=== PATIENT | male | born 1950 | race Caucasian/White ===

== ENCOUNTER → 2018-02-13 16:37 | Outpatient (CLI) | payer OTHER, SELFPAY ==
--- NOTE | 2018-02-13 17:15 | RAD_ITS ---
STUDY: X-RAY CHEST REASON FOR EXAM: Male, 67 years old. Follow-up TECHNIQUE: 2 views COMPARISON: February 13, 2015 FINDINGS: The lungs are clear and expanded. There is no demonstrated pleural abnormality. Normal size heart. Normal mediastinum and angelique. Normal visualized pulmonary arteries. Normal visualized aortic arch and descending thoracic aorta. Normal visualized thoracic spine. Normal visualized ribs, clavicles, and shoulders. There is no demonstrated abnormality of the visualized soft tissue structures of the upper abdomen. RAD/Chest PA and Lateral IMPRESSION: Normal x-ray examination of the chest. No acute findings in the lungs Electronically Signed: Osiel Cuellar, at 7:16 EDT Tel , Service support ,
== END ==
PROVIDERS: Family Provider Family Medicine; PCP Family Medicine; Visit Provider Internal Medicine Cardiovascular Disease
DX: I48.0 Paroxysmal atrial fibrillation (principal)
CPT/HCPCS: 71046

== ENCOUNTER → 2018-07-13 07:01 | Outpatient (CLI) | payer OTHER, SELFPAY ==
[2018-07-13 10:32] LABS: Absolute Lymphocyte Count 1.52 X10^3/ul (0.83-4.51); Absolute Neutrophil Count 3.3 X10^3/uL (2.0-7.7); Basophil# 0.05 X10^3/uL; Basophil% 0.9 % (0-1); Eosinophil# 0.32 X10^3/uL; Eosinophils% 5.7 % (0-5); Hematocrit 39.5 % (40-54); Hemoglobin 13.3 g/dl (13.0-16.5); Lymphocyte # 1.52 X10^3/ul (4.0); Lymphocyte % 27.2 % (19-41); Mean Corp Hgb Conc 33.7 g/gl (32-36); Mean Corpuscular Hgb 30.5 pg (27.0-32.0); Mean Corpuscular Volume 90.6 fL (80-94); Mean Platelet Vol. 10.4 fl (6.2-12.0); Monocyte# 0.43 X10^3/uL; Monocyte% 7.7 % (0-10); Neutrophil # 3.26 X10^3/uL (2.7-7.7); Neutrophil % 58.3 % (47-70); Platelet Count 203 K/mm3 (150-450); RBC Distribution Width CV 13.3 % (11.6-14.6); RBC Distribution Width SD 44.1 fl (35.1-43.9); Red Blood Count 4.36 M/mm3 (4.6-6.2); White Blood Count 5.6 K/mm3 (4.4-11.0)
[2018-07-13 10:33] LABS: POSITIVE COUNT NO; POSITIVE DIFFERENTIAL NO; POSITIVE MORPHOLOGY NO
[2018-07-13 12:32] LABS: ALB/GLOB Ratio 1.1 RATIO (0.9-2.4); AST(SGOT) 22 U/L (15-37); Alanine Aminotransfer ALT/SGPT 40 U/L (16-61); Albumin, Serum 3.7 g/dL (3.2-5.0); Alkaline Phosphatase 61 U/L (45-117); Anion Gap 10 (5-15); BUN 18 mg/dL (7-18); BUN/Creat Ratio 16.7 RATIO (10-20); Calcium,Total 8.4 mg/dL (8.5-10.1); Chloride 108 mmol/L (98-107); Cholesterol 127 mg/dL (200); Creatinine, Serum 1.08 mg/dL (0.70-1.30); EST Glomerular Filtration Rate 72 mL/min (>60); Est Glom Filt Rate - Afr Amer 88 mL/min (>60); Globulin 3.5 g/dL (2.2-4.2); Glucose 114 mg/dL (74-106); High Density Lipoprotein 46 mg/dL; PSA,Total - Annual Screen 0.43 ng/mL (0.00-4.00); Potassium 3.3 mmol/L (3.5-5.1); Protein, Total 7.2 g/dL (6.4-8.2); Sodium Level 144 mmol/L (136-145); Thyroid Stim Hormone (TSH) 1.16 uIU/mL (0.358-3.74); Triglycerides 133 mg/dL; Very Low Density Lipoprotein 27 mg/dL (5-40)
[2018-07-13 18:53] LABS: Hemoglobin A1c 6.2 % (4.2-6.3)
--- OUTSIDE RECORDS SUMMARY | 2018-09-05 05:00 | XMS RPT_ITS ---
:1950 Author Organization OHIP Care Team Providers Name Role Phone Lamar Michel Attending Unavailable Golden Kiser Attending Unavailable Ravin Aly Referring Unavailable Ahmet Aly Primary Care Unavailable Golden Kiser Attending Unavailable Reinier Kiserril Referring Unavailable Ravin Aly Primary Care Unavailable Golden Kiser Attending Unavailable Ravin Aly Referring Unavailable Ravin Aly Primary Care Unavailable Ravin Aly Attending Unavailable Ravin Aly Referring Unavailable Ravin Aly Primary Care Unavailable PROBLEMS PROBLEMS DATE TYPE CONDITION / CODE ATTENDING STATUS SOURCE 02/13/2018 Unknown I48.0 - Paroxysmal Margi, Golden Active [facility] I48.0(ICD-10) Repository PROCEDURES PROCEDURES No Procedure Records FoundRESULTS RESULTS CBC W/DIFF, AUTOMATED Collected: 07/13/2018 Status: F Source: [place] 7:04 AM [facility] REPOSITORY TYPE CODE TESTS RESULT OUT OF RANGE REFERENCE UNITS LAB L100.1000 4.4-11.0 K/mm3 Normal WBC 5.6 LAB L100.1200 4.6-6.2 M/mm3 Low RBC 4.36 LAB L100.1300 13.0-16.5 g/dl Normal HGB 13.3 LAB L100.1400 40-54 % Low HCT 39.5 LAB L100.1500 80-94 fL Normal MCV 90.6 LAB L100.1600 27.0-32.0 pg Normal MCH 30.5 LAB L100.1700 32-36 g/gl Normal MCHC 33.7 LAB L100.1810 11.6-14.6 % Normal RDW CV 13.3 LAB L100.1820 35.1-43.9 fl High RDW SD 44.1 LAB L100.1900 150-450 K/mm3 Normal PLT 203 LAB L100.2000 6.2-12.0 fl Normal MPV 10.4 LAB L100.2100 47-70 % Normal NEUT% 58.3 LAB L100.2200 19-41 % Normal LY% 27.2 LAB L100.2300 0-10 % Normal MONO% 7.7 LAB L100.2400 0-5 % High EO% 5.7 LAB L100.2500 0-1 % Normal BASO% 0.9 LAB L100.2550 0.0-0.9 % Normal IM GRAN % 0.200 Result Comment: IG% - Immature Granulocytes (promyelocytes, myelocytes and metamyelocytes) > 1% indicates that a LEFT SHIFT is Present. LAB L100.2620 2.0-7.7 X10 3/uL Normal Absolute Neut 3.3 LAB L100.2720 0.83-4.51 X10 3/ul Normal Absolute Lymph 1.52 Performed By: #### L100.0100 #### [facility] [address] [place], [place], [id number] COMPREHENSIVE METABOLIC Collected: 07/13/2018 Status: F Source: [place]ONZ[place] 7:04 AM [facility] REPOSITORY TYPE CODE TESTS RESULT OUT OF RANGE REFERENCE UNITS LAB L501.0100 74-106 mg/dL High GLU 114 Result Comment: Fasting Glucose result from 100 to 125 mg/dL suggests IMPAIRED HOMEOSTASIS per A.D.A. criteria. Please note revised GLUCOSE reference range effective 2017. LAB L501.1000 7-18 mg/dL Normal BUN 18 LAB L501.1100 0.70-1.30 mg/dL Normal CREAT,SERUM 1.08 Result Comment: The validity of the calculated GFR AND GFRAA in patients over 70 years has not been determined. Clinical correlation is essential. LAB L501.1110 >60 mL/min Normal EST GFR 72 Result Comment: Non- GFR Calc LAB L501.1115 >60 mL/min Normal EST GFR - AA 88 Result Comment: GFR Calc LAB L501.1300 10-20 RATIO Normal BUN/CRE 16.7 LAB L501.1500 6.4-8.2 g/dL T Normal PROT 7.2 LAB L501.1800 3.2-5.0 g/dL Normal ALB 3.7 LAB L501.1950 2.2-4.2 g/dL Normal GLOB 3.5 LAB L501.2000 0.9-2.4 RATIO Normal A/G 1.1 LAB L501.2200 8.5-10.1 mg/dL Low CA 8.4 LAB L501.4100 15-37 U/L Normal AST 22 LAB L501.4305 45-117 U/L Normal ALK P 61 LAB L501.4405 16-61 U/L Normal ALT 40 LAB L501.4600 0.20-1.00 mg/dL T Normal BILI 0.40 LAB L501.5300 136-145 mmol/L NA Normal 144 LAB L501.5600 3.5-5.1 mmol/L Low K 3.3 LAB L501.5900 98-107 mmol/L High CL 108 LAB L501.6100 21.0-32.0 mmol/L Normal CO2 26.0 LAB L501.6200 5-15 Normal GAP 10 Performed By: #### L500.4050, L500.4100, L501.9520, L501.9910 #### [facility] [address] [place], [place], [id number] LIPID PROFILE Collected: 07/13/2018 Status: F Source: [place] 7:04 AM [facility] REPOSITORY TYPE CODE TESTS RESULT OUT OF RANGE REFERENCE UNITS LAB L501.4900 200 mg/dL Normal CHOL 127 Result Comment: <200 mg/dL Desirable 200-240 mg/dL Borderline >240 mg/dL High Risk LAB L501.5000 mg/dL Normal TRIG 133 Result Comment: The drugs N-Acetylcysteine and Metamizole may falsely depress this assay. Serum Triglycerides Reference Interval Normal <150 mg/dL Borderline high 150 - 199 mg/dL High 200 - 499 mg/dL Very High > or = 500 mg/dL LAB L501.6400 mg/dL Normal HDL 46 Result Comment: The drugs N-Acetylcysteine and Metamizole may falsely depress this assay. Reference Range HDL <40 mg/dL Low HDL Cholesterol HDL >or= 60 mg/dL High HDL Cholesterol LAB L501.6500 0-130 mg/dL Normal LDL 54 LAB L501.6600 5-40 mg/dL Normal VLDL 27 Performed By: #### L500.4050, L500.4100, L501.9520, L501.9910 #### [facility] [address] [facility] [place], [place], [id number] THYROID STIM HORMONE Collected: 07/13/2018 Status: F Source: [place] (TSH) 7:04 AM [facility] REPOSITORY TYPE CODE TESTS RESULT OUT OF RANGE REFERENCE UNITS LAB L501.9520 0.358-3.74 uIU/mL Normal TSH 1.16 Performed By: #### L500.4050, L500.4100, L501.9520, L501.9910 #### [facility] [address] [place], [place], [id number] PSA,TOTAL - ANNUAL Collected: 07/13/2018 Status: F Source: [place] SCREEN 7:04 AM [facility] REPOSITORY TYPE CODE TESTS RESULT OUT OF RANGE REFERENCE UNITS LAB L501.9910 0.00-4.00 ng/mL Normal PSA,TOT 0.43 SCREEN Result Comment: This test was performed using the TPSA assay method for the Intoo chemistry system. Values obtained with different assay methods cannot be used interchangably. When changing PSA assays in the course of monitoring a patient, additional sequential testing should be carried out to confirm baseline values. Performed By: #### L500.4050, L500.4100, L501.9520, L501.9910 #### [facility] [address] [place], [address] HEMOGLOBIN A1C Collected: 07/13/2018 Status: F Source: [place] 7:04 AM [facility] REPOSITORY TYPE CODE TESTS RESULT OUT OF RANGE REFERENCE UNITS LAB L501.9985 4.2-6.3 % Normal HGB A1C 6.2 Performed By: #### L501.9985 #### [facility] [address] [place], [address] OFFICE VISIT REPORT Observed: 03/11/2018 Status: F Source: [place] 1:26 PM [facility] REPOSITORY [facility] [address] [place] [address] OFFICE VISIT Date of Service: 03/09/18 MR#: [id number] Acct: [id number] Patient: JOVANNY HILLS Rep #: [id number] : 1950 Provider: Golden Kiser MD Age/Sex: 67/M Location: [facility] Status: Signed Intake Intake Visit Reasons: RLE injury with bruising Allergies grape Allergy (Verified 02/13/18 16:00) Anaphylaxis peanut Allergy (Verified 02/13/18 16:00) Anaphylaxis Medications Multivitamins,Therapeutic [Multivitamin] 1 tab PO DAILY 02/13/15 [History Confirmed 02/13/18] Malott-3 Fatty Acids/Fish Oil [Fish Oil 1,200 mg Softgel] 1 ea PO DAILY 02/13/15 [History Confirmed 02/13/18] Omeprazole [Prilosec] 20 mg PO DAILY 02/13/15 [History Confirmed 02/13/18] Tamsulosin HCl [Flomax] 0.4 mg PO DAILY 02/13/15 [History Confirmed 02/13/18] Rivaroxaban [Xarelto] 20 mg PO DAILY #30 tab 02/15/15 [Rx Confirmed 02/13/18] Carvedilol [Coreg (Beta Savannah)] 12.5 mg PO BID #60 tab 02/16/15 [Rx Confirmed 02/13/18] lisinopril 5 mg tablet 5 mg PO BID #180 tab 07/18/17 [Rx Confirmed 02/13/18] amiodarone 200 mg tablet 200 mg PO QDAY #90 tab 02/13/18 [Rx Confirmed 02/13/18] tadalafil 5 mg tablet 5 mg PO DAILY 02/13/18 [History Confirmed 02/13/18] atorvastatin 40 mg tablet 40 mg PO QHS #90 tab 02/23/18 [Rx] furosemide 40 mg tablet 40 mg PO QDAY #90 tab 02/23/18 [Rx] Nursing Note Patient in for RLE groin injury. He has been holding his xarelto because of groin and medial thigh ecchymosis. He was seen at Urgent Center who told him it was okay to restart his xarelto, but stopped in to make sure we agreed. Right groin slightly ecchymotic, with bruising noted behind knee and medial knee. C/O increase pain medial knee presently has thigh wrapped with an mady bandage per Urgent Care instructions. Patient instructed to start xarelto today. 03/11/18 1326 <Electronically signed by Tiffany REYNOLDS> Date Tiffany REYNOLDS Cosigner Signature: Date (if applicable) CC: Aracelis Ng CARDIOLOGY VISIT Observed: 02/16/2018 Status: F Source: [place] REPORT 7:24 PM [facility] REPOSITORY [facility] [address] [place] [address] OFFICE VISIT Date of Service: 02/13/18 MR#: [id number] Acct: [id number] Name: JOVANNY HILLS Rep #: [id number] : 1950 Provider: Golden Kiser MD Age/Sex: 67/M Location: [facility] Status: Signed HPI HPI Details: JOVANNY HILLS, is a 67 M who presents to the office today for a follow-up visit. He is a gentleman with a history of nonischemic cardiomyopathy with was demonstrated on cardiac catheterization with a minimal coronary artery disease. He has had a history of atrial fibrillation for which she was cardioverted he was put on amiodarone beta-savannah MADY inhibitor and diuretic he has done quite well since. He says that he has had one episode where he had some palpitations he felt his heart was racing but it was more in the 70s. He has had no chest pain paroxysmal nocturnal dyspnea or pedal edema no presyncope or syncope. He has been under some stressful situation at work. You do remember that his ejection fraction is noted to be 40-45% by MRI. His most recent echocardiogram in January of last year demonstrated ejection fraction of 50% with mild mitral and tricuspid regurgitation. His physical exam today demonstrates clear lung chilel regular rate and rhythm and no pedal edema. Overall he appears to doing quite well. Intake Vital Signs02/13/18 Height 5 ft 8 in 02/13/18 Weight: 183 lb 02/13/18 Body Mass Index (BMI) 27.8 02/13/18 Blood Pressure 110/72 02/13/18 Blood Pressure Location Lt brachial Intake Visit Reasons: 6 M FU (we moved from 6-8) [employer] Required: No Accompanied by: none Is patient in pain?: No Allergies grape Allergy (Verified 02/13/18 16:00) Anaphylaxis peanut Allergy (Verified 02/13/18 16:00) Anaphylaxis Medications Multivitamins,Therapeutic [Multivitamin] 1 tab PO DAILY 02/13/15 [History Confirmed 02/13/18] Malott-3 Fatty Acids/Fish Oil [Fish Oil 1,200 mg Softgel] 1 ea PO DAILY 02/13/15 [History Confirmed 02/13/18] Omeprazole [Prilosec] 20 mg PO DAILY 02/13/15 [History Confirmed 02/13/18] Tamsulosin HCl [Flomax] 0.4 mg PO DAILY 02/13/15 [History Confirmed 02/13/18] Rivaroxaban [Xarelto] 20 mg PO DAILY #30 tab 02/15/15 [Rx Confirmed 02/13/18] Carvedilol [Coreg (Beta [place]annah)] 12.5 mg PO BID #60 tab 02/16/15 [Rx Confirmed 02/13/18] lisinopril 5 mg tablet 5 mg PO BID #180 tab 07/18/17 [Rx Confirmed 02/13/18] amiodarone 200 mg tablet 200 mg PO QDAY #90 tab 02/13/18 [Rx Confirmed 02/13/18] atorvastatin 40 mg tablet 40 mg PO QHS #90 tab 02/13/18 [Rx Confirmed 02/13/18] furosemide 40 mg tablet 40 mg PO QDAY #90 tab 02/13/18 [Rx Confirmed 02/13/18] tadalafil 5 mg tablet 5 mg PO DAILY 02/13/18 [History Confirmed 02/13/18] Ejection fraction %: 50 to 54 [facility] Medical History Atherosclerosis of coronary artery of [place] heart without angina pectoris (Chronic) Paroxysmal atrial fibrillation (Chronic) Hyperlipidemia (Chronic) GERD (gastroesophageal reflux disease) (Chronic) Acute systolic CHF (congestive heart failure) (Chronic) Cardiomyopathy (Chronic) PVCs (premature ventricular contractions) (Acute) Hypokalemia (Resolved) New onset atrial fibrillation (Resolved) Surgical History History of cardioversion (Chronic 04/24/15) Status post left heart catheterization (Chronic 02/14/15) Family History Brother Heart disease heart transplant Social History Smoking Status: Never smoker ROS Const Const: Negative for fatigue, weakness, night sweats, excessive sweating, frequent falls, headache(s) or daytime sleepiness Eyes Eyes: Negative for loss of peripheral vision, transient loss of vision, blind spots, double vision or blurry vision ENT ENT: Negative for headache(s), dizziness, balance problems, Nosebleed/epistaxis, tongue swelling or lip swelling Cardio Chest Pain: No Palpitations: No Edema: None Muscle aches with walking: None Resp Respiratory: Positive for SOB with activity; negative for SOB at rest, SOB orthopnea\SOB lying down, Cough or paroxysmal nocturnal dyspnea GI GI: Negative nausea, vomiting, heartburn, black,tarry stools or bright, red blood in stools : Negative for hematuria Musc Musc: Negative for balance problems, muscle aches/ myalgia, muscle weakness or joint pain Skin Skin: Negative non-healing lesions, unusual bruising or rash Neuro Neuro: Negative for weakness, frequent falls, headache(s), double vision, dizziness, lightheadedness, orthostatic symptoms, blurry vision or lack of coordination Zay Hematologic/Lymphatic: Negative for easy bruising or easy bleeding Endo Endo: Negative for fatigue, excessive sweating, cold intolerance, heat intolerance, increased thirst/drinking or hair loss Psych Psych: Negative for anxiety or depression Allergy Allergy/Immunology: Negative for throat swelling, Negative for tongue swelling, Negative for hives, Negative for rash, Negative for lip swelling Cardiology Exam Const Appearance: cooperative, healthy appearing, well developed, well groomed and no acute distress Nutritional Appearance: well nourished and average body habitus Orientation: alert, awake and oriented x3 Head Head: normal to inspection, normocephalic and atraumatic Ears: hearing grossly normal bilaterally and external ears normal Nose: external nose normal, nasal mucous membranes and turbinates normal, nares normal, septum normal, no nasal discharge Face and Sinus: face symmetric Mouth: oral mucosae normal, tongue normal, oropharynx normal and moist mucous membranes Teeth and gingiva: dentition normal Throat: posterior oropharynx normal, tonsils normal and uvula midline Eyes General: appearance normal, both eyes and all related structures Eyelids: eyelids normal Conjunctivae: conjunctivae normal Pupils: PERRL, normal by confrontation and accommodation normal EOM: EOM intact bilaterally Neck Neck: normal visual inspection, trachea midline and no JVD JVD: +5 Carotids: normal carotid upstroke and bounding pulses Chest Chest inspection: normal inspection of the chest, symmetric chest movement and normal respiratory effort Auscultation: Bilateral: Clear to Auscultation Cardio Palpation: normal PMI Rate: regular rate Rhythm: regular rhythm Heart sounds: S1 normal, S2 normal and normal, physiologic split S2; negative rub, gallop or murmur GI GI: normal to inspection, soft, no hepatosplenomegaly and bowel sounds present Neuro General: alert, awake, oriented x3, no focal sensory deficit, gait normal and moves all extremities Skin Skin: no rashes or lesions noted Extremities Pulses: Normal: Right Femoral Pulse, Left Femoral Pulse, Right Dorsalis Pedis Pulse, Left Dorsalis Pedis Pulse, Right Posterior Tibial Pulse, Left Posterior Tibial Pulse, Right Radial Pulse, Left Radial Pulse Lower Extremity Edema: None: Bilateral Musculoskel Musculoskeletal: No joint tenderness Psych Psychological: normal affect Assessment AND Plan 1. Paroxysmal atrial fibrillation I48.0 Plan He does have a history of paroxysmal atrial fibrillation has been maintaining sinus rhythm on his current regimen and the plan is for him to continue the same. Due to his being on the amiodarone I would recommend that we obtain a chest x-ray routinely. No other changes will be made. Orders Orders: 2. Other cardiomyopathy I42.8 Plan He does have a history of a mild cardiomyopathy without any heart failure symptoms my recommendation is for him to remain on the same medications with no changes. Should he experience any change in his condition he should not hesitate to let us know. 3. Pure hypercholesterolemia E78.00 Plan He does have a history of hyperlipidemia and is on high intensity statin. His most recent lipid profile demonstrated total cholesterol 112, HDL of 44, and LDL of 42. No other changes will be made. Thank you for allowing me to participate in the care of your patient. Please don't hesitate to call if any issues arise Plan Detail Other Medications New: Refilled: Follow Up 6 Months (rewriter) Coding Level of Care Code Off vis,est,level 4 Diagnoses Paroxysmal atrial fibrillation I48.0 Other cardiomyopathy I42.8 Cardiomyopathy type: other Pure hypercholesterolemia E78.00 Hyperlipidemia type: pure hypercholesterolemia Coding Level of Care Code Off vis,est,level 4 Diagnoses Paroxysmal atrial fibrillation I48.0 Other cardiomyopathy I42.8 Cardiomyopathy type: other Pure hypercholesterolemia E78.00 Hyperlipidemia type: pure hypercholesterolemia 02/16/181923 <Electronically signed by Golden Kiser MD> Date Golden Kiser MD Cosigner Signature: Date (if applicable) CC: Ravin Aly DO CHEST PA AND LATERAL Observed: 02/13/2018 Status: F Source: [place] 4:41 PM [facility] REPOSITORY [facility] [place] [address] Chest PA and Lateral MR#: [id number] Acct: [id number] Name: JOVANNY HILLS Rep #: [id number] : 1950 M 67 From: Osiel Cuellar MD PCP: Ravin Aly DO Status: REG CLI Study: Chest PA and Lateral Date of Exam: 02/13/18 Exam# [id number] Ordering Dr: Golden Kiser MD STUDY: X-RAY CHEST REASON FOR EXAM: Male, 67 years old. Follow-up TECHNIQUE: 2 views COMPARISON: February 13, 2015 FINDINGS: The lungs are clear and expanded. There is no demonstrated pleural abnormality. Normal size heart. Normal mediastinum and angelique. Normal visualized pulmonary arteries. Normal visualized aortic arch and descending thoracic aorta. Normal visualized thoracic spine. Normal visualized ribs, clavicles, and shoulders. There is no demonstrated abnormality of the visualized soft tissue structures of the upper abdomen. RAD/Chest PA and Lateral IMPRESSION: Normal x-ray examination of the chest. No acute findings in the lungs Electronically Signed: Osiel Cuellar, at 7:16 EDT Tel , Service support , CC: Golden Kiser MD; Ravin Aly DO Network [employer] Operators Supervisor: Signed PROGRESS Observed: 11/14/2017 Status: COMPLETED Source: [place] 4:35 PM [facility] REPOSITORY HNO ID: [id number] Author: Chiquis Acosta Service: (none) Author Type: Physician Salvage Winder Type: Progress Notes Filed: 11/14/2017 4:48 PM Note Text: 11/14/2017 Patient presents with: Flu Like Symptoms SUBJECTIVE: This is a 67 year old that is here today for Complaint(s) of cough and chest congestion x 1 week. + pain with coughing across the center of the back. + intermittent SOB. Notes low grade fever and chills. + Nasal congestion. Normal appetite, but diminished energy. + scratchy throat with cough. He does have afbi, currently on xaralto. No past medical history on file. ALLERGIES Review of patient's allergies indicates no known allergies. MEDICATIONS No current outpatient prescriptions on file. No current facility-administered medications for this visit. SOCIAL HISTORY Social History Marital status: Spouse name: Years of education: Number of children: Social History Main Topics Smoking status: Never Smoker Smokeless status: Never Used REVIEW OF SYSTEMS All other reviewed and negative other than HPI. OBJECTIVE: BP 140/80 Pulse 75 Temp 37.7 ?C (99.9 ?F) (Left Tympanic) Resp 26 Wt 83 kg (183 lb) SpO2 96% APPEARANCE Well appearing, alert, in no acute distress, well-hydrated, well nourished. EYES PERRLA, conjunctiva and sclera normal. EARS External ears normal, canals clear. TMs normal DANIELLE NOSE/SINUS Nares normal. Septum midline. Mucosa normal. No drainage or sinus tenderness. THROAT normal, no erythema NECK Supple, no adenopathy HEART RRR with normal S1 and S2 LUNG coarse breath sounds DANIELLE lower lobes, + expiratory wheezes scattered left side. ASSESSMENT/PLAN: 1. Bronchitis - ICD9: 490, ICD10: J40 Supportive care with fluids and rest Reviewed red flags and when to seek care sooner. OTC cough/cold meds - BENZONATATE 100 MG CAPSULE - PREDNISONE 20 MG TABLET - DOXYCYCLINE HYCLATE 100 MG TABLET The patient indicates understanding of these issues and agrees with the plan. Reviewed red flags and when to seek care sooner. ROBERT Ku Observed: 11/14/2017 Status: COMPLETED Source: [place] 4:15 PM [facility] REPOSITORY Office Visit ([facility]STR) JOVANNY HILLS ([id number]) 1950 M Date Time Provider Department 11/14/17 4:15 PM CHIQUIS ACOSTA) [facility] During your visit today, we recorded the following information about you: Temperature Pulse Respiration Blood pressure 99.9 degrees 75/minute 26/minute 140/80 Weight 83 kg Chiquis Acosta PA-C 11/14/2017 4:48 PM Signed 11/14/2017 Patient presents with: Flu Like Symptoms SUBJECTIVE: This is a 67 year old that is here today for Complaint(s) of cough and chest congestion x 1 week. + pain with coughing across the center of the back. + intermittent SOB. Notes low grade fever and chills. + Nasal congestion. Normal appetite, but diminished energy. + scratchy throat with cough. He does have afbi, currently on xaralto. No past medical history on file. ALLERGIES Review of patient's allergies indicates no known allergies. MEDICATIONS No current outpatient prescriptions on file. No current facility-administered medications for this visit. SOCIAL HISTORY Social History Marital status: Spouse name: Years of education: Number of children: Social History Main Topics Smoking status: Never Smoker Smokeless status: Never Used REVIEW OF SYSTEMS All other reviewed and negative other than HPI. OBJECTIVE: BP 140/80 Pulse 75 Temp 37.7 ?C (99.9 ?F) (Left Tympanic) Resp 26 Wt 83 kg (183 lb) SpO2 96% APPEARANCE Well appearing, alert, in no acute distress, well- hydrated, well nourished. EYES PERRLA, conjunctiva and sclera normal. EARS External ears normal, canals clear. TMs normal DANIELLE NOSE/SINUS Nares normal. Septum midline. Mucosa normal. No drainage or sinus tenderness. THROAT normal, no erythema NECK Supple, no adenopathy HEART RRR with normal S1 and S2 LUNG coarse breath sounds DANIELLE lower lobes, + expiratory wheezes scattered left side. ASSESSMENT/PLAN: 1. Bronchitis - ICD9: 490, ICD10: J40 Supportive care with fluids and rest Reviewed red flags and when to seek care sooner. OTC cough/cold meds - BENZONATATE 100 MG CAPSULE - PREDNISONE 20 MG TABLET - DOXYCYCLINE HYCLATE 100 MG TABLET The patient indicates understanding of these issues and agrees with the plan. Reviewed red flags and when to seek care sooner. Chiquis Acosta PA-C Referring Provider: SELF [200] Allergies As of Date: 11/14/2017 (No Known Allergies) Date Reviewed: 11/14/2017 Reviewed by: Aure Jaimes Ma - Fully Assessed Reason for Visit: Flu Like Symptoms [267] Primary Visit Diagnosis:Bronchitis [J40] Order(s):benzonatate (TESSALON PERLE) 100 mg capsuleTake 2 capsules by mouth three times daily as needed.Disp: 30 capsuleRfl: 0 predniSONE (DELTASONE) 20 mg tabletTake 2 tablets by mouth once daily for 5 days.Disp: 10 tabletRfl: 0 doxycycline (VIBRA-TABS) 100 mg tabletTake 1 tablet by mouth twice daily for 10 days.Disp: 20 tabletRfl: 0 Prescriptions as of 11/14/2017 Sig: BENZONATATE 100 MG CAPSULE Take 2 capsules by mouth thre* PREDNISONE 20 MG TABLET Take 2 tablets by mouth once * DOXYCYCLINE HYCLATE 100 MG TA* Take 1 tablet by mouth twice * Problem List As Of Date: 11/14/2017 (None) Prescriptions ordered this encounter Disp Refills Start End BENZONATATE 100 MG CAPSULE 30 c* 0 11/14/2017 Route: ORAL Sig: Take 2 capsules by mouth three times daily as needed. PREDNISONE 20 MG TABLET 10 t* 0 11/14/2017 11/19/2017 Route: ORAL Sig: Take 2 tablets by mouth once daily for 5 days. DOXYCYCLINE HYCLATE 100 MG TABLET 20 t* 0 11/14/2017 11/24/2017 Route: ORAL Sig: Take 1 tablet by mouth twice daily for 10 days. Encounter Status:Closed by CHIQUIS ACOSTA PA-C on 11/14/17 ALLERGIES ALLERGIES DATE TYPE / CODE NAME / CODE REACTION SEVERITY SOURCE 02/13/2018 Drug peanut/F006 Anaphylaxis Unknown [place] [facility] Allergy/4160 [id number]([facility] 87246(SNOMED RM) Repository CT) 02/13/2018 Drug grape/F0060 Anaphylaxis Unknown [facility] All[facility]/4160 89645([place] [facility] [id number](SNOMED M) Repository CT) ENCOUNTERS ENCOUNTERS ADMIT/DISCHARGE ACCOUNT ADMITTING ENCOUNTER LOCATION SOURCE NUMBER CLASS 07/13/2018 [id number] Ambulatory [facility] ing:MTLAB Repository 03/09/2018/03/09/20 [id number] Ambulatory BMSBuilding:[address] [place] [address].[facility] Repository 02/13/2018 [id number] Ambulatory [facility] ing:RAD Repository 02/13/2018/02/14/20 [id number] Ambulatory BMSBuilding:[address] [place] [address] MS.[facility] Repository 01/21/2018 [id number] Ambulatory [facility] Repository 11/14/2017/11/18/19 [id number] Ambulatory [address] Repository PAYERS PAYERS ENCOUNTER GUARANTOR PAYER SUBSCRIBER SOURCE 07/13/2018 JOVANNY Hand Primary Insurance:UMR JOVANNY Hightower [id number] CELESTE [id number] BARILLEDOB: [facility] Number: [id number] [id number] Repository 90696Pbk: ([phone]) Date:[id number] [phone] () [address] [place] [phone]: 07/13/2018 Secondary NOT GIVENUNK [place] Insurance:SELF PAY [facility] Number: Effective Repository Date:2018-07-13 03/09/2018 JOVANNY Hand Primary Insurance:UMR JOVANNY Hightower [id number] CELESTE [id number] BARILLEDOB: [facility] JORDEN Number: [id number], [place] [id number] Repository [address]Ixw: 330) Date:0056-69-76EF [phone] ) [address] [phone]: 03/09/2018 Secondary NOT GIVENUNK [place] Insurance:SELF PAY [facility] Number: Effective Repository Date:2018-03-09 02/13/2018 JOVANNY Hand Primary Insurance:UMR JOVANNY Hightower [id number] CELESTE [id number] BARILLEDOB: [facility] Number: [id number], [place] [id number] Repository [address]28[address]Dpi: ([phone]) Date:6958-48-11TZ [phone] (HP) [address] [place] [phone]: 02/13/2018 Secondary NOT GIVENUNK [place] Insurance:SELF PAY [facility] Effective Repository Date:2018-02-13 02/13/2018 JOVANNY Hand Primary Insurance:UMR JOVANNY Hand [place] [id number] CELESTE [id number] BARILLEDOB: Community JORDEN Number: [id number], [place] [id number] Repository [address]Hxn: ([phone]) Date:1606-63-93OH [phone] () [address] [place] [phone]: 02/13/2018 Secondary NOT GIVENUNK [place] Insurance:SELF PAY [facility] Number: Effective Repository Date:2017-11-10 01/21/2018 JOVANNY Hand Primary Insurance:UMR JOVANNY Hand [place] [id number] CELESTE [id number] BARILLEDOB: Community JORDEN Number: [id number], [place] [id number] Repository 38[address]Tzd: Date:[id number] [phone] [place] [address], -4 (HP) [place] [phone]: 01/21/2018 Secondary NOT GIVENUNK [place] Insurance:SELF PAY [facility] Number: Effective Repository Date:2018-01-21
== END ==
PROVIDERS: Family Provider Family Medicine; PCP Family Medicine; Referring Provider Family Medicine; Visit Provider Family Medicine
DX: Z00.01 Encounter for general adult medical examination with abnormal findings (principal); N40.0 Benign prostatic hyperplasia without lower urinary tract symptoms; Z12.5 Encounter for screening for malignant neoplasm of prostate; Z51.81 Encounter for therapeutic drug level monitoring; I25.10 Atherosclerotic heart disease of native coronary artery without angina pectoris; E78.5 Hyperlipidemia, unspecified; R73.01 Impaired fasting glucose
CPT/HCPCS: 36415; 80053; 80061; 83036; 84153; 84443; 85025; G0103

== ENCOUNTER → 2019-02-26 14:35 | Outpatient (CLI) | payer OTHER, SELFPAY ==
[2019-02-26 12:01] VITALS: BMI 28.5
[2019-02-26 15:20] LABS: AST(SGOT) 24 U/L (15-37); Alanine Aminotransfer ALT/SGPT 42 U/L (16-61); Albumin, Serum 3.8 g/dL (3.2-5.0); Alkaline Phosphatase 63 U/L (45-117); Anion Gap 5 (5-15); BUN 13 mg/dL (7-18); BUN/Creat Ratio 11.7 RATIO (10-20); Bilirubin, Direct 0.11 mg/dL (0.00-0.30); Calcium,Total 8.5 mg/dL (8.5-10.1); Chloride 106 mmol/L (98-107); Cholesterol 151 mg/dL (200); Creatinine, Serum 1.11 mg/dL (0.70-1.30); EST Glomerular Filtration Rate 70 mL/min (>60); Est Glom Filt Rate - Afr Amer 85 mL/min (>60); Globulin 3.9 g/dL (2.2-4.2); Glucose 93 mg/dL (74-106); High Density Lipoprotein 56 mg/dL; Potassium 3.5 mmol/L (3.5-5.1); Protein, Total 7.7 g/dL (6.4-8.2); Sodium Level 139 mmol/L (136-145); Thyroid Stim Hormone (TSH) 1.07 uIU/mL (0.358-3.74); Triglycerides 175 mg/dL; Very Low Density Lipoprotein 35 mg/dL (5-40)
== END ==
PROVIDERS: Family Provider Family Medicine; PCP Family Medicine; Referring Provider Internal Medicine Cardiovascular Disease; Visit Provider Internal Medicine Cardiovascular Disease
DX: E78.00 Pure hypercholesterolemia, unspecified (principal)
CPT/HCPCS: 36415; 80048; 80061; 80076; 84443

== ENCOUNTER → 2020-02-25 15:28 | Outpatient (CLI) | payer OTHER, SELFPAY ==
[2019-02-26 12:01] VITALS: BMI 28.5
[2020-02-25 15:00] VITALS: BMI 27.9
[2020-02-25 16:32] LABS: Absolute Lymphocyte Count 1.49 X10^3/uL (0.83-4.51); Absolute Neutrophil Count 6.2 X10^3/uL (2.0-7.7); Basophil# 0.07 X10^3/uL; Basophil% 0.8 % (0-1); Eosinophil# 0.22 X10^3/uL; Eosinophils% 2.6 % (0-5); Hematocrit 40.6 % (40-54); Hemoglobin 13.5 g/dL (13.0-16.5); Lymphocyte # 1.49 X10^3/ul (4.0); Lymphocyte % 17.3 % (19-41); Mean Corp Hgb Conc 33.3 g/dL (32-36); Mean Corpuscular Hgb 30.2 pg (27.0-32.0); Mean Corpuscular Volume 90.8 fL (80-94); Mean Platelet Vol. 10.3 fl (6.2-12.0); Monocyte# 0.64 X10^3/uL; Monocyte% 7.4 % (0-10); NRBC Flagged by Analyzer 0 % (0-5); Neutrophil # 6.17 X10^3/uL (2.7-7.7); Neutrophil % 71.7 % (47-70); Platelet Count 228 K/mm3 (150-450); RBC Distribution Width CV 12.8 % (11.6-14.6); RBC Distribution Width SD 42.4 fl (35.1-43.9); Red Blood Count 4.47 M/mm3 (4.6-6.2); White Blood Count 8.6 K/mm3 (4.4-11.0)
[2020-02-25 17:22] LABS: AST(SGOT) 24 U/L (15-37); Alanine Aminotransfer ALT/SGPT 35 U/L (16-61); Albumin, Serum 3.9 g/dL (3.2-5.0); Alkaline Phosphatase 55 U/L (45-117); Anion Gap 5 (5-15); BUN 19 mg/dL (7-18); BUN/Creat Ratio 17.8 RATIO (10-20); Bilirubin, Direct 0.17 mg/dL (0.00-0.30); Calcium,Total 8.3 mg/dL (8.5-10.1); Chloride 107 mmol/L (98-107); Cholesterol 133 mg/dL (200); Creatinine, Serum 1.07 mg/dL (0.70-1.30); EST Glomerular Filtration Rate 73 mL/min (>60); Est Glom Filt Rate - Afr Amer 88 mL/min (>60); Globulin 3.6 g/dL (2.2-4.2); Glucose 89 mg/dL (74-106); High Density Lipoprotein 51 mg/dL; PSA,Total - Annual Screen 0.54 ng/mL (0.00-4.00); Potassium 3.5 mmol/L (3.5-5.1); Protein, Total 7.5 g/dL (6.4-8.2); Sodium Level 140 mmol/L (136-145); Thyroid Stim Hormone (TSH) 1.31 uIU/mL (0.358-3.74); Triglycerides 97 mg/dL; Very Low Density Lipoprotein 19 mg/dL (5-40)
[2020-02-28 12:42] LABS: V-Zoster IgG (Immunity) 621 index (Immune >165)
== END ==
PROVIDERS: Family Provider Family Medicine; PCP Family Medicine; Referring Provider Internal Medicine Cardiovascular Disease; Visit Provider Internal Medicine Cardiovascular Disease
DX: Z51.81 Encounter for therapeutic drug level monitoring (principal); Z12.5 Encounter for screening for malignant neoplasm of prostate; Z71.89 Other specified counseling
CPT/HCPCS: 36415; 80048; 80061; 80076; 84153; 84443; 85025; 86787; G0103

== ENCOUNTER → 2020-03-27 08:42 | Outpatient (CLI) | payer OTHER, SELFPAY ==
[2020-02-25 15:00] VITALS: BMI 27.9
--- NOTE | 2020-03-27 08:47 | ECHOD_ITS ---
Reason For Study: CHF Procedure This was a 2D Doppler, Color Flow transthoracic echocardiogram. Exam performed in department. Left Ventricle Normal LV size. Left ventricular systolic function is lower limits of normal. The estimated ejection fraction is 50 %. Stage 1 diastolic dysfunction. There is mild global hypokinesis of the left ventricle. Right Ventricle Normal RV size. Normal systolic function. Atria The left atrium is mildly enlarged. Normal right atrium. Mitral Valve Normal mitral valve. Mild (1+) eccentric mitral valve insufficiency. Tricuspid Valve Normal tricuspid valve. Mild tricuspid valve insufficiency. Pulmonary artery systolic pressure is 30 mmHg. Aortic Valve Normal aortic valve. Trisinus/trileaflet aortic valve. Pulmonic Valve Normal pulmonic valve. Great Vessels Normal aortic root. The pulmonary artery is normal size. Normal inferior vena cava. Pericardium/Pleural No pericardial effusion. MMode/2D Measurements & Calculations LVIDd: 5.2 cm IVSd: 1.1 cm Ao root diam: 3.3 cm LVIDs: 3.3 cm LVPWd: 1.4 cm LA dimension: 4.6 cm RVDd: 3.6 cm FS: 36.0 % LAV(MOD-bp): 51.7 ml LA A4 area: 21.0 cm2 RA A4 area: 14.4 cm2 LAV(MOD-bp) Indexed: 26.8 ml/m2 LAV(MOD-sp2): 43.2 ml LAV(MOD-sp4): 59.6 ml Time Measurements MV dec time: 0.29 sec Doppler Measurements & Calculations MV E max jay jay: 71.0 cm/sec Lat Peak E' Jay Jay: 5.8 cm/sec Med Peak E' Jay Jay: 5.1 cm/sec MV A max jay jay: 98.1 cm/sec E/E' lat: 12.2 E/E' med: 13.9 MV E/A: 0.72 MV V2 max: 118.5 cm/sec MV P1/2t max jay jay: 82.8 cm/sec Ao V2 max: 132.9 cm/sec MV max P.6 mmHg MV P1/2t: 146.1 msec Ao max P.1 mmHg MV V2 mean: 57.0 cm/sec MV dec slope: 166.0 cm/sec2 MV mean P.5 mmHg MVA(P1/2t): 1.5 cm2 MV V2 VTI: 42.7 cm LV V1 max: 101.9 cm/sec MR max jay jay: 437.9 cm/sec PA V2 max: 114.6 cm/sec LV V1 max P.2 mmHg MR max P.7 mmHg MR mean jay jay: 376.0 cm/sec MR mean P.7 mmHg MR VTI: 194.5 cm TR max jay jay: 255.0 cm/sec TR max P.0 mmHg Interpretation Summary Normal LV size. Left ventricular systolic function is lower limits of normal. The estimated ejection fraction is 50 %. Stage 1 diastolic dysfunction. Compared to prior study, there is no significant change. Ordering Physician: Golden Kiser Referring Physician: Ravin Aly Performed By: Jameel Swanson RCS
== END ==
PROVIDERS: PCP Family Medicine; Referring Provider Internal Medicine Cardiovascular Disease; Visit Provider Internal Medicine Cardiovascular Disease
DX: I42.8 Other cardiomyopathies (principal); I50.9 Heart failure, unspecified
CPT/HCPCS: 93306

== ENCOUNTER → 2021-01-24 07:09 | Outpatient (CLI) | payer OTHER, SELFPAY ==
[2020-02-25 15:00] VITALS: BMI 27.9
[2021-01-24 10:23] LABS: Absolute Lymphocyte Count 1.52 X10^3/uL (0.83-4.51); Absolute Neutrophil Count 6.4 X10^3/uL (2.0-7.7); Basophil# 0.04 X10^3/uL; Basophil% 0.4 % (0-1); Eosinophils% 3.3 % (0-5); Hemoglobin 12.8 g/dL (13.0-16.5); Lymphocyte # 1.52 X10^3/ul (0.83-4.51); Lymphocyte % 16.9 % (19-41); Mean Corp Hgb Conc 32.8 g/dL (32-36); Mean Corpuscular Hgb 30.3 pg (27.0-32.0); Mean Corpuscular Volume 92.4 fL (80-94); Mean Platelet Vol. 9.5 fl (6.2-12.0); Monocyte# 0.67 X10^3/uL; Monocyte% 7.5 % (0-10); NRBC Flagged by Analyzer 0 % (0-5); Neutrophil # 6.43 X10^3/uL (2.7-7.7); Neutrophil % 71.6 % (47-70); Platelet Count 287 K/mm3 (150-450); RBC Distribution Width SD 43.9 fl (35.1-43.9); Red Blood Count 4.22 M/mm3 (4.6-6.2)
[2021-01-24 10:43] LABS: Hemoglobin A1c 5.6 % (3.8-5.6)
[2021-01-24 10:53] LABS: ALB/GLOB Ratio 0.8 RATIO (0.9-2.4); AST(SGOT) 18 U/L (15-37); Alanine Aminotransfer ALT/SGPT 27 U/L (16-61); Albumin, Serum 3.3 g/dL (3.2-5.0); Alkaline Phosphatase 77 U/L (45-117); Anion Gap 7 (5-15); BUN 12 mg/dL (7-18); BUN/Creat Ratio 12.4 RATIO (10-20); Calcium,Total 8.5 mg/dL (8.5-10.1); Chloride 105 mmol/L (98-107); Cholesterol 136 mg/dL (200); Creatinine, Serum 0.97 mg/dL (0.70-1.30); EST Glomerular Filtration Rate 82 mL/min (>60); Est Glom Filt Rate - Afr Amer 99 mL/min (>60); Glucose 105 mg/dL (74-106); High Density Lipoprotein 43 mg/dL; PSA,Total - Annual Screen 0.64 ng/mL (0.00-4.00); Potassium 3.6 mmol/L (3.5-5.1); Protein, Total 7.3 g/dL (6.4-8.2); Sodium Level 139 mmol/L (136-145); Triglycerides 124 mg/dL; Very Low Density Lipoprotein 25 mg/dL (5-40)
== END ==
PROVIDERS: PCP Family Medicine; Referring Provider Family Medicine; Visit Provider Family Medicine
DX: I25.10 Atherosclerotic heart disease of native coronary artery without angina pectoris (principal); E78.5 Hyperlipidemia, unspecified; R73.03 Prediabetes
CPT/HCPCS: 36415; 80053; 80061; 83036; 84153; 85025; G0103

== ENCOUNTER → 2022-02-14 | Outpatient (CLI) | payer MEDICARE, OTHER, SELFPAY ==
--- NOTE | 2022-02-14 16:53 | RAD_ITS ---
INDICATION: Amiodarone EXAMINATION/TECHNIQUE: X-RAY - XR Chest 2 Views COMPARISON: None. FINDINGS: LINES/DEVICES: None. LUNGS: Symmetric normal lung volumes. No abnormal interstitial pattern to suggest interstitial lung disease and no groundglass opacities as can be potentially seen with AMIODARONE toxicity. No nodule or mass. No pleural effusion or pneumothorax. MEDIASTINUM AND CARDIOVASCULAR STRUCTURES: Normal size and contour of the cardiomediastinal silhouette. No evidence of pulmonary vascular congestion. Mild atherosclerosis aortic arch. BONES AND SOFT TISSUES: No fracture or focal osseous lesion. RAD/Chest PA and Lateral IMPRESSION: 1. No evidence of interstitial lung disease to suggest AMIODARONE toxicity. Electronically Signed: Ben Lopez DO at 21:41 EDT ,
[2022-02-14 17:43] LABS: AST(SGOT) 26 U/L (15-37); Alanine Aminotransfer ALT/SGPT 37 U/L (16-61); Alkaline Phosphatase 65 U/L (45-117); Bilirubin, Direct 0.21 mg/dL (0.00-0.30); Cholesterol 154 mg/dL (200); Globulin 3.9 g/dL (2.2-4.2); High Density Lipoprotein 54 mg/dL; Protein, Total 7.9 g/dL (6.4-8.2); T4 Free Direct 1.54 ng/dL (0.76-1.46); Thyroid Stim Hormone (TSH) < 0.01 uIU/mL (0.358-3.74); Triglycerides 163 mg/dL; Very Low Density Lipoprotein 33 mg/dL (5-40)
== END | disposition home or self-care (01) ==
LOC: RAD 16:48
PROVIDERS: PCP Family Medicine; Referring Provider Nurse Practitioner Gerontology; Visit Provider Nurse Practitioner Gerontology
DX: I70.0 Atherosclerosis of aorta (principal); E78.00 Pure hypercholesterolemia, unspecified; E78.1 Pure hyperglyceridemia; E78.5 Hyperlipidemia, unspecified; Z79.899 Other long term (current) drug therapy
CPT/HCPCS: 36415; 71046; 80061; 80076; 84439; 84443

== ENCOUNTER → 2022-02-20 | Outpatient (CLI) | payer MEDICARE, OTHER, SELFPAY ==
--- NOTE | 2022-02-21 10:04 | PFT ---
INTRODUCTION: The patient is a 71-year-old male that presents for pulmonary function studies secondary to a diagnosis of amiodarone use. Respiratory therapy reported good patient effort. Bronchodilators were used during testing. INTERPRETATION: Forced expiration spirometry demonstrates no evidence of a large airways obstructive ventilatory defect. There was no significant response to aerosolized bronchodilators. Spirograms are of good quality and plateau normally. Body plethysmography was performed and reveals lung volumes to be within normal limits. Diffusing capacity by single breath CO is also within normal limits. IMPRESSION: Grossly normal pulmonary function studies.
== END | disposition home or self-care (01) ==
LOC: PSN 07:58
PROVIDERS: PCP Family Medicine; Referring Provider Nurse Practitioner Gerontology; Visit Provider Nurse Practitioner Gerontology
DX: Z79.899 Other long term (current) drug therapy (principal)
CPT/HCPCS: 94060; 94726; 94729

== ENCOUNTER → 2023-11-18 | Outpatient (CLI) | payer MEDICARE, SELFPAY ==
[2023-11-18 15:18] LABS: AST(SGOT) 23 U/L (15-37); Alanine Aminotransfer ALT/SGPT 25 U/L (16-61); Albumin, Serum 3.4 g/dL (3.2-5.0); Alkaline Phosphatase 60 U/L (45-117); Anion Gap 7 (5-15); BUN 17 mg/dL (7-18); BUN/Creat Ratio 16.7 RATIO (10-20); Bilirubin, Direct 0.11 mg/dL (0.00-0.30); Calcium,Total 8.8 mg/dL (8.5-10.1); Chloride 108 mmol/L (98-107); Cholesterol 124 mg/dL (200); Creatinine, Serum 1.02 mg/dL (0.70-1.30); EST Glomerular Filtration Rate 76 mL/min (>60); Est Glom Filt Rate - Afr Amer 92 mL/min (>60); Globulin 3.8 g/dL (2.2-4.2); Glucose 104 mg/dL (74-106); High Density Lipoprotein 39 mg/dL; Potassium 3.7 mmol/L (3.5-5.1); Protein, Total 7.2 g/dL (6.4-8.2); Sodium Level 140 mmol/L (136-145); Thyroid Stim Hormone (TSH) 1.22 uIU/mL (0.358-3.74); Triglycerides 160 mg/dL; Very Low Density Lipoprotein 32 mg/dL (5-40)
== END | disposition home or self-care (01) ==
PROVIDERS: PCP Family Medicine; Referring Provider Internal Medicine Cardiovascular Disease; Visit Provider Internal Medicine Cardiovascular Disease
DX: I42.8 Other cardiomyopathies (principal); I48.0 Paroxysmal atrial fibrillation; E78.00 Pure hypercholesterolemia, unspecified
CPT/HCPCS: 36415; 80048; 80061; 80076; 84443

== ENCOUNTER → 2023-12-16 | Outpatient (CLI) | payer MEDICARE, SELFPAY ==
--- NOTE | 2023-12-16 12:46 | ECHOD_ITS ---
Reason For Study: PAF, DCM Procedure This was a 2D Doppler, Color Flow transthoracic echocardiogram. Exam performed in department. Left Ventricle Normal LV size. Apical false tendon noted. Mild global left ventricular systolic dysfunction. The estimated ejection fraction is 47 %. There is borderline global hypokinesis of the left ventricle. Right Ventricle Normal RV size. Normal systolic function. Atria Normal left atrium. Normal right atrium. Mitral Valve Normal mitral valve. Mild (1+) eccentric mitral valve insufficiency. Tricuspid Valve Normal tricuspid valve. Mild tricuspid valve insufficiency. Pulmonary artery systolic pressure is 25 mmHg. Aortic Valve Trisinus/trileaflet aortic valve. Pulmonic Valve Normal pulmonic valve. Great Vessels Normal aortic root. The pulmonary artery is normal size. Normal inferior vena cava. Pericardium/Pleural No pericardial effusion. MMode/2D Measurements & Calculations LVIDd: 5.3 cm IVSd: 1.1 cm Ao root diam: 3.5 cm LVIDs: 4.5 cm LVPWd: 1.1 cm RVDd: 3.3 cm FS: 14.5 % LAV(MOD-bp): 60.1 ml LVAd ap4: 37.0 cm2 LVAd ap2: 30.5 cm2 LAV(MOD-bp) Indexed: 31.1 ml/m2 LVLd ap4: 8.5 cm LVLd ap2: 7.9 cm LAV(MOD-sp2): 59.9 ml EDV(MOD-sp4): 132.0 ml EDV(MOD-sp2): 98.4 ml LAV(MOD-sp4): 60.4 ml EDV(sp4-el): 136.7 ml EDV(sp2-el): 99.9 ml LVAs ap4: 26.1 cm2 LVAs ap2: 21.6 cm2 LVLs ap4: 7.7 cm LVLs ap2: 7.2 cm ESV(MOD-sp4): 76.3 ml ESV(MOD-sp2): 54.9 ml ESV(sp4-el): 75.7 ml ESV(sp2-el): 55.0 ml EF(MOD-sp4): 42.2 % EF(MOD-sp2): 44.2 % EF(sp4-el): 44.6 % SV(MOD-sp4): 55.6 ml SV(MOD-sp2): 43.5 ml SV(sp4-el): 61.0 ml LA dimension(2D): 4.4 cm LA A4 area: 20.7 cm2 RA A4 area: 15.6 cm2 TAPSE: 1.7 cm Time Measurements MV dec time: 0.19 sec Doppler Measurements & Calculations MV E max jay jay: 68.1 cm/sec Lat Peak E' Jay Jay: 6.4 cm/sec Med Peak E' Jay Jay: 4.2 cm/sec MV A max jay jay: 89.4 cm/sec E/E' lat: 10.7 E/E' med: 16.1 MV E/A: 0.76 MV dec slope: 356.2 cm/sec2 Ao V2 max: 122.6 cm/sec LV V1 max: 105.3 cm/sec Ao max P.0 mmHg LV V1 max P.4 mmHg Ao V2 mean: 86.9 cm/sec LV V1 mean P.5 mmHg Ao mean P.4 mmHg LV V1 mean: 74.9 cm/sec Ao V2 VTI: 29.1 cm LV V1 VTI: 24.2 cm AV (velocity ratio): 0.83 PA V2 max: 83.0 cm/sec TR max jay jay: 229.3 cm/sec TR max P.0 mmHg ECHO/Echo Complete Interpretation Summary Normal LV size. Mild global left ventricular systolic dysfunction. The estimated ejection fraction is 47 %. Mild (1+) eccentric mitral valve insufficiency. The global longitudinal strain is moderately abnormal. The global longitudinal strain = -13.7% (abnormal). Ordering Physician: Golden Kiser Referring Physician: Ravin Aly Performed By: Nerissa Kaur RDCS
== END | disposition home or self-care (01) ==
LOC: CVS 12:46
PROVIDERS: PCP Family Medicine; Referring Provider Internal Medicine Cardiovascular Disease; Visit Provider Internal Medicine Cardiovascular Disease
DX: I48.0 Paroxysmal atrial fibrillation (principal)
CPT/HCPCS: 93306

== ENCOUNTER → 2024-01-22 | Outpatient (CLI) | payer MEDICARE, SELFPAY ==
[2024-01-22 12:25] LABS: Absolute Lymphocyte Count 1.68 X10^3/uL (0.83-4.51); Basophil# 0.08 X10^3/uL; Basophil% 0.9 % (0-1); Eosinophil# 0.33 X10^3/uL; Eosinophils% 3.7 % (0-5); Hematocrit 41.2 % (40-54); Hemoglobin 13.3 g/dL (13.0-16.5); Lymphocyte # 1.68 X10^3/ul (0.83-4.51); Lymphocyte % 19.1 % (19-41); Mean Corp Hgb Conc 32.3 g/dL (32-36); Mean Corpuscular Hgb 29.2 pg (27.0-32.0); Mean Corpuscular Volume 90.5 fL (80-94); Mean Platelet Vol. 10.3 fl (6.2-12.0); Monocyte# 0.69 X10^3/uL; Monocyte% 7.8 % (0-10); NRBC Flagged by Analyzer 0 % (0-5); Neutrophil % 68.2 % (47-70); Platelet Count 298 K/mm3 (150-450); RBC Distribution Width CV 13.5 % (11.6-14.6); RBC Distribution Width SD 44.9 fl (35.1-43.9); Red Blood Count 4.55 M/mm3 (4.6-6.2); White Blood Count 8.8 K/mm3 (4.4-11.0)
[2024-01-22 12:52] LABS: PSA,Total - Annual Screen 0.83 ng/mL (0.00-4.00)
== END | disposition home or self-care (01) ==
LOC: BFHLAB 10:39
PROVIDERS: PCP Family Medicine; Referring Provider Family Medicine; Visit Provider Family Medicine
DX: Z12.5 Encounter for screening for malignant neoplasm of prostate (principal); Z51.81 Encounter for therapeutic drug level monitoring
CPT/HCPCS: 36415; 84153; 85025; G0103

== ENCOUNTER → 2025-01-21 | Outpatient (CLI) | payer MEDICARE, SELFPAY ==
[2025-01-21 14:06] LABS: Absolute Lymphocyte Count 1.48 X10^3/uL (0.83-4.51); Absolute Neutrophil Count 5.5 X10^3/uL (2.0-7.7); Basophil# 0.06 X10^3/uL; Basophil% 0.8 % (0-1); Eosinophil# 0.23 X10^3/uL; Eosinophils% 2.9 % (0-5); Hematocrit 41.4 % (40-54); Hemoglobin 14.1 g/dL (13.0-16.5); Lymphocyte # 1.48 X10^3/ul (0.83-4.51); Lymphocyte % 18.9 % (19-41); Mean Corp Hgb Conc 34.1 g/dL (32-36); Mean Corpuscular Hgb 31.1 pg (27.0-32.0); Mean Corpuscular Volume 91.2 fL (80-94); Mean Platelet Vol. 10.3 fl (6.2-12.0); Monocyte# 0.53 X10^3/uL; Monocyte% 6.8 % (0-10); NRBC Flagged by Analyzer 0 % (0-5); Neutrophil # 5.53 X10^3/uL (2.7-7.7); Neutrophil % 70.5 % (47-70); Platelet Count 215 K/mm3 (150-450); RBC Distribution Width CV 13.4 % (11.6-14.6); RBC Distribution Width SD 44.9 fl (35.1-43.9); Red Blood Count 4.54 M/mm3 (4.6-6.2); White Blood Count 7.8 K/mm3 (4.4-11.0)
[2025-01-21 15:19] LABS: Hemoglobin A1c 6.2 % (<=5.6)
[2025-01-21 15:23] LABS: AST(SGOT) 22 U/L (<=37); Alanine Aminotransfer ALT/SGPT 25 U/L (<=46); Albumin, Serum 4.2 g/dL (3.4-4.8); Alkaline Phosphatase 70 U/L (40-129); Bilirubin, Direct 0.28 mg/dL (0.00-0.30); Cholesterol 132 mg/dL (<=200); Globulin 2.9 g/dL (2.2-4.2); High Density Lipoprotein 41 mg/dL; Low Density Lipoprotein Calc. 60 mg/dL; Protein, Total 7.1 g/dL (5.9-8.4); Total Bilirubin 0.77 mg/dL (0.00-1.30); Triglycerides 152 mg/dL; Very Low Density Lipoprotein 30 mg/dL (5-40)
[2025-01-21 15:25] LABS: ALB/GLOB Ratio 1.4 RATIO (0.9-2.4); AST(SGOT) 21 U/L (<=37); Alanine Aminotransfer ALT/SGPT 23 U/L (<=46); Albumin, Serum 4.2 g/dL (3.4-4.8); Alkaline Phosphatase 69 U/L (40-129); Anion Gap 10 (5-15); BUN 13 mg/dL (4-19); BUN/Creat Ratio 12.1 RATIO (10-20); Calcium,Total 9.1 mg/dL (7.6-11.0); Chloride 105 mmol/L (98-108); Creatinine, Serum 1.03 mg/dL (0.70-1.20); EST Glomerular Filtration Rate 76 (>60); Globulin 2.9 g/dL (2.2-4.2); Glucose 107 mg/dL (70-99); Potassium 3.8 mmol/L (3.3-5.1); Protein, Total 7.1 g/dL (5.9-8.4); Sodium Level 140 mmol/L (133-145); Total Bilirubin 0.73 mg/dL (0.00-1.30)
--- OUTSIDE RECORDS SUMMARY | 2025-01-21 19:26 | XMS RPT_ITS | CCD ---
Author Organization [facility] ion [facility] Care Team Providers Care Maintenance Repairer Name Role Phone Sharon ANGEL, Fior Kruse Unavailable Unavailable MD Kiser Cyril S Unavailable Fior Herrera RN Unavailable Unavailable Bhargavi Alcala Unavailable Unavailable MD Kiser Cyril S Unavailable Dr. Ravin Aly Primary Care Provider 1([facility])[phone] Dr. Ravin Aly Referring Provider Nathaniel DOUGLAS, MIS John Attending Provider Dr. Ravin Aly Primary Care Provider Dr. Ravin Aly Referring Provider Dr. Gloden Kiser Attending Provider Ravin Aly Referring Unavailable Golden Kiser Attending Unavailable Ravin Aly Primary Care Unavailable Ravin Aly Referring Unavailable Ravin Aly Primary Care Unavailable Ravin Aly Attending Unavailable Allergies Allergy Classification Reported Allergen(s) Allergy Type Date of Onset Reaction(s) Facility (3 sources) grape extract Drug Allergy 02-14-2022 Anaphylaxis [facility] (3 sources) peanut allergenic extract Drug Allergy 02-14-2022 Anaphylaxis [facility] (1 source) grape extract Drug Allergy 12-30-2024 [facility] Repository (1 source) peanut allergenic extract Drug Allergy 12-30-2024 [facility] Repository Medications Current Medications Medication Drug Class(es) Dates Sig (Normalized) Sig (Original) amiodarone hydrochloride 200 mg oral tablet (20 sources) Antiarrhythmic Start: 02-15-2022 End: 11-18-2022 take 100 mg by mouth once daily Amiodarone Active 100 MG PO daily November 18, 2022 9:25am Start: 08-12-2017 End: 02-15-2022 take 200 mg by mouth once daily Amiodarone Discontinued 200 MG PO daily November 20, 2021 3:16pm February 15, 2022 12:25pm Start: 07-18-2017 End: 08-12-2017 take 100 mg by mouth once daily Amiodarone Discontinued 100 MG PO DAILY July 18, 2017 4:54pm August 12, 2017 5:21pm Start: 04-24-2015 End: 07-18-2017 take 200 mg by mouth once daily Amiodarone Discontinued 200 MG PO DAILY May 17, 2015 12:00am July 18, 2017 4:54pm Start: 04-24-2015 AMIODARONE HCL 200 MG TABS One tablet by mouth twice daily X 14 days then once daily AMIODARONE HCL [id number] Golden Kiser MD Multivitamin With Folic Acid (3 sources) Start: 02-13-2015 take 1 tablet by mouth once daily Multivitamin With Folic Acid Active 1 TABLET PO DAILY February 13, 2015 12:00am omeprazole 20 mg delayed release oral capsule (13 sources) Proton Pump Inhibitor Start: 02-13-2015 take 20 mg by mouth once daily Omeprazole Active 20 MG PO DAILY February 13, 2015 12:00am Saw Beckley (3 sources) Start: 02-14-2022 take 160 mg by mouth once daily Saw Beckley Active 160 MG PO DAILY February 14, 2022 12:00am Completed/Discontinued Medications Medication Drug Class(es) Dates Sig (Normalized) Sig (Original) aspirin 81 mg oral tablet (13 sources) Platelet Aggregation Inhibitor, Nonsteroidal Anti-inflammatory Drug Start: 02-22-2015 End: 08-30-2015 take 1 tablet by mouth once daily ASPIRIN 81 MG TABS One tablet by mouth daily ASPIRIN [id number] Golden Kiser MD Start: 02-22-2015 End: 08-30-2015 take 1 tablet by mouth once daily ASPIRIN 81 MG TABS One tablet by mouth daily ASPIRIN [id number] Golden Kiser MD Start: 02-16-2015 End: 07-18-2017 take 81 mg by mouth once daily Aspirin Discontinued 81 MG PO DAILY@0800 February 16, 2015 12:00am July 18, 2017 4:52pm atorvastatin 40 mg oral tablet (20 sources) HMG-CoA Reductase Inhibitor Start: 02-16-2015 End: 04-07-2023 take 40 mg by mouth once daily Atorvastatin Discontinued 40 MG PO DAILY April 16, 2022 12:12pm April 07, 2023 8:32am carvedilol 12.5 mg oral tablet (20 sources) alpha-Adrenergic Savannah, beta-Adrenergic Savannah Start: 02-22-2015 take 1 tablet by mouth twice daily COREG 6.25 MG TABS One tablet by mouth twice daily CARVEDILOL [id number] Fior Herrera RN Start: 02-16-2015 End: 05-15-2023 take 1 tablet by mouth twice daily Carvedilol Discontinued 0 .ROUTE .COMPLEX 180 May 13, 2023 1:48pm May 15, 2023 2:33pm TAKE 1 TABLET BY MOUTH TWICE A DAY docosahexaenoic acid 144 mg / eicosapentaenoic acid 216 mg / vitamin e 2 unt oral capsule (3 sources) Start: 02-13-2015 End: 02-14-2022 Bishop-3 Fatty Acids-Fish Oil Discontinued 1 EACH PO DAILY February 13, 2015 12:00am February 14, 2022 3:50pm Fish Oils (5 sources) Start: 02-22-2015 take 1 tablet by mouth once daily FISH OIL CAPS One tablet by mouth daily OMEGA-3 FATTY ACIDS CAPS [id number] Fior Herrera RN Start: 02-22-2015 take 1 tablet by janiya th once daily FISH OIL CAPS One tablet by mouth daily OMEGA-3 FATTY ACIDS CAPS [id number] Fior Herrera RN furosemide 40 mg oral tablet (20 sources) Loop Diuretic Start: 07-18-2017 End: 04-07-2023 take 40 mg by mouth once daily Furosemide Discontinued 40 MG PO DAILY April 16, 2022 12:12pm April 07, 2023 8:32am Start: 02-22-2015 take 1 tablet by janiya th once daily LASIX 40 MG TABS One tablet by mouth daily FUROSEMIDE [id number] Tiffany Calle PA-C Start: 02-16-2015 End: 07-18-2017 take 40 mg by mouth twice daily Furosemide Discontinue d 40 MG PO TWICE DAILY February 16, 2015 12:00am July 18, 2017 4:54pm lisinopril 5 mg oral tablet (20 sources) Angiotensin Converting Enzyme Inhibitor Start: 07-18-2017 End: 08-12-2023 take 5 mg by mouth twice daily Lisinopril Discontinued 5 MG PO TWICE A DAY June 20, 2023 3:45pm August 12, 2023 2:13pm Start: 02-22-2015 take 1 tablet by janiya th twice daily LISINOPRIL 5 MG TABS One tablet by mouth twice daily LISINOPRIL [id number] James Amador NP Start: 02-16-2015 End: 07-18-2017 take 5 mg by mouth once daily Lisinopril Discontinued 5 MG PO DAILY February 16, 2015 12:00am July 18, 2017 4:54pm MULTIPLE VITAMINS-MINERALS (2 sources) Start: 02-22-2015 take 1 tablet by mouth once daily MENS MULTIVITAMIN PLUS ORAL TABS One tablet by mouth daily MULTIPLE VITAMINS-MINERALS [id number] Fior Herrera RN MULTIPLE VITAMINS-MINERALS (3 sources) Start: 02-22-2015 take 1 tablet by mouth once daily MENS MULTIVITAMIN PLUS TABS One tablet by mouth daily MULTIPLE VITAMINS-MINERALS [id number] Fior Herrera RN Start: 02-22-2015 take 1 tablet by janiya th once daily MENS MULTIVITAMIN PLUS ORAL TABS One tablet by mouth daily MULTIPLE VITAMINS-MINERALS [id number] Fior Herrera RN potassium chloride 20 meq extended release oral tablet (13 sources) Start: 02-16-2015 End: 07-18-2017 take 20 mEq by mouth once daily at mealtime Potassium Chloride Discontinued 20 MEQ PO DAILY WITH MEALS February 16, 2015 12:00am July 18, 2017 4:52pm pravastatin sodium 80 mg oral tablet (3 sources) HMG-CoA Reductase Inhibitor Start: 02-13-2015 End: 02-16-2015 take 80 mg by mouth once daily Pravastatin Discontinued 80 MG PO DAILY February 13, 2015 12:00am February 16, 2015 2:05pm rivaroxaban 20 mg oral tablet (20 sources) Factor Xa Inhibitor Start: 02-15-2015 End: 11-18-2023 take 20 mg by mouth once daily Rivaroxaban Discontinued 20 MG PO DAILY February 17, 2023 9:16am November 18, 2023 11:33am tadalafil 5 mg oral tablet (20 sources) Phosphodiesterase 5 Inhibitor Start: 12-14-2015 End: 01-25-2016 take 1 tablet by mouth once daily as needed CIALIS 10 MG TABS One tablet by mouth daily as needed TADALAFIL [id number] Golden Kiser MD Start: 02-13-2015 End: 02-26-2019 take 5 mg by mouth once daily Tadalafil Discontinued 5 MG PO DAILY February 13, 2018 4:04pm February 26, 2019 2:17pm tamsulosin hydrochloride 0.4 mg oral capsule (18 sources) alpha-Adrenergic Savannah Start: 12-14-2015 TAMSU LOSIN HCL 0.4 MG CAPS Two capsules by mouth at night TAMSULOSIN HCL [id number] Ravin Aly Start: 02-13-2015 End: 12-14-2015 take 0.4 mg by mouth once daily Tamsulosin Active 0.4 MG PO DAILY February 13, 2015 12:00am Problems Active Problems Problem Classification Problem Date Documented Date Episodic/Chronic Cardiac dysrhythmias (20 sources) Atrial fibrillation; Translations: [Paroxysmal atrial fibrillation] Onset: 02-22-2015 02-22-2015 Chronic Congestive heart failure; nonhypertensive (10 sources) Chronic systolic (congestive) heart failure; Translations: [Congestive heart failure] Onset: 02-22-2015 01-25-2016 Chronic Coronary atherosclerosis and other heart disease (14 sources) Atherosclerotic heart disease of red devil coronary artery without angina pectoris; Translations: [Coronary atherosclerosis] Onset: 02-22-2015 01-25-2016 Chronic Disorders of lipid metabolism (9 sources) Hyperlipidemia; Translations: [Hyperlipidemia, unspecified] Onset: 02-22-2015 02-22-2015 Chronic Esophageal disorders (8 sources) Gastroesophageal reflux disease; Translations: [Gastro-esophageal reflux disease without esophagitis] Onset: 12-14-2015 12-15-2015 Chronic Fluid and electrolyte disorders (3 sources) Hypokalemia; Translations: [Hypokalemia] 02-12-2018 Episodic Hyperplasia of prostate (5 sources) Benign prostatic hyperplasia; Translations: [Benign prostatic hyperplasia without lower urinary tract symptoms] Onset: 12-14-2015 12-15-2015 Chronic Other aftercare (5 sources) Other halfway (current) drug therapy; Translations: [Long-term (current) use of other medications] Onset: 02-22-2015 07-12-2015 Episodic Other aftercare (3 sources) Drug therapy finding; Translations: [Other halfway (current) drug therapy] 02-14-2022 Episodic Cinthya-; endo-; and myocarditis; cardiomyopathy (except that caused by tuberculosis or sexually transmitted disease) (11 sources) Dilated cardiomyopathy; Translations: [Cardiomyopathy] Onset: 02-22-2015 02-22-2015 Chronic Unclassified (3 sources) Screening for malignant neoplasm of prostate ; Translations: [Encounter for screening for malignant neoplasm of prostate] Onset: 12-14-2015 12-15-2015 Unclassified (6 sources) Long-term drug therapy; Translations: [Other intermodal truck driver (current) drug therapy] Onset: 02-22-2015 07-12-2015 Unclassified (1 source) Finding of body mass index; Translations: [Body mass index (BMI) 27.0-27.9, adult] Onset: 07-12-2015 07-12-2015 Past or Other Problems Problem Classification Problem Date Documented Date Episodic/Chronic Other nutritional; endocrine; and metabolic disorders (4 sources) Body mass index (BMI) 27.0-27.9, adult; Translations: [Body mass index (BMI) 27.0-27.9, adult] Onset: 07-12-2015 07-12-2015 Episodic Other screening for suspected conditions (not mental disorders or infectious disease) (4 sources) Electrocardiogram abnormal; Translations: [Abnormal electrocardiogram [ECG] [EKG]] Onset: 01-27-2024 02-14-2022 Episodic Residual codes; unclassified (5 sources) Family history of ischemic heart disease and other diseases of the circulatory system; Translations: [Family history of ischemic heart disease and other diseases of the circulatory system] 02-22-2015 Episodic Results Test Name Value Interpretation Reference Range Facility Cardiology Visit Reporton Cardiology Visit Report [facility] [address] [place] [address] OFFICE VISIT Date of Service: 12/30/24 MR#: [id number] Acct: [id number] Name: JOVANNY HILLS Rep #: [id number] : 1950 Provider: Dr. Golden Kiser MD Age/Sex: 74/M Location[place] [facility] [place] Status: Signed HPI HPI History of Present Illness Details: JOVANNY HILLS, is a 74M who presents to the office today for a follow-up visit. He is a gentleman with a history of nonischemic cardiomyopathy with was demonstrated on cardiac catheterization with a minimal coronary artery disease. He has had a history of atrial fibrillation for which he was cardioverted he was put on amiodarone, beta-savannah, MADY inhibitor and a diuretic. You do remember that his ejection fraction is noted to be 40-45% by MRI. His most recent echocardiogram in January of 2020 demonstrated ejection fraction of 50% with mild mitral and tricuspid regurgitation. He tells me that he just got back from a [facility] and is planning a trip to [place] and [facility]. From a cardiac standpoint, the patient is doing well. He denies any palpitations, chest pain, pressure or heaviness. He denies SOB, Orthopnea, and PND. He does not have bleeding issues; no blood in urine, stool or nosebleeds. He denies any decrease in energy level, myalgias, or claudication. He does not have edema, or sudden weight gain. He denies dizziness, lightheadedness, syncopal or near syncopal episodes, and headaches. Intake Vital Signs 11/18/23 11:24 12/30/24 11:18 Height 5 ft 8 in 5 ft 8 in Weight: 174 lb BMI 26.4 BP 106/70 Blood Pressure Location Lt brachial Position Sitting Respiration 16 Pulse 62 Pulse Source Monitor Intake Visit Reasons: 1 y fu w [facility] per [facility] Medical Coding Auditor Required: No Accompanied by: Self Is patient in pain?: No Allergies grape Allergy (Verified 12/30/24 11:21) Anaphylaxis peanut Allergy (Verified 12/30/24 11:21) Anaphylaxis Medications ???Medication ???Instructions ???Recorded ???Confirmed ???Type multivitamin with folic acid 400 1 tab PO DAILY 02/13/15 12/30/24 H istory mcg tablet omeprazole 20 mg capsule,delayed 20 mg PO DAILY 02/13/15 12/30/24 H istory release tamsulosin 0.4 mg capsule 0.4 mg PO DAILY 02/13/15 12/30/24 History saw palmetto 160 mg capsule 160 mg PO DAILY 02/14/22 12/30/24 History rivaroxaban 20 mg tablet 20 mg PO DAILY #90 tabs 11/18/23 0 12/30/24 Rx amiodarone 200 mg tablet 100 mg (1/2 x 200 mg) PO QDAY #90 05/24/24 12/30/24 Rx tabs carvedilol 12.5 mg tablet See Rx Instructions .Route 4 12/30/24 Rx .COMPLEX #180 tabs furosemide 40 mg tablet 40 mg PO DAILY #90 tabs 05/28/24 0 12/30/24 Rx atorvastatin 40 mg tablet 40 mg PO DAILY #90 tabs 06/07/24 0 12/30/24 Rx lisinopril 5 mg tablet 5 mg PO QDAY #180 tabs 12/30/24 Rx Have you fallen in the past year?: No PFSH Medical History Nonischemic cardiomyopathy Atherosclerosis of coronary artery of red devil heart without angina pectoris Paroxysmal atrial fibrillation PVCs (premature ventricular contractions) Hypokalemia Acute systolic CHF (congestive heart failure) (02/2015) New onset atrial fibrillation GERD (gastroesophageal reflux disease) Hyperlipidemia Surgical History History of cardioversion (04/24/15) Status post left heart catheterization (02/14/15) Family History Brother Heart disease heart transplant Social History Smoking Status: Never smoker alcohol intake: current alcohol intake frequency: a few times a month substance use type: does not use caffeine: Yes Type: coffee Number of servings: 5 ROS Const Const: Negative for fatigue, weakness, headache(s), daytime sleepiness or difficulty sleeping ENT ENT: Negative for headache(s), dizziness or Nosebleed/epistaxis Cardio Chest Pain: No Palpitations: No Edema: None Resp Respiratory: Negative for SOB with activity, SOB at rest, SOB orthopnea SOB lying down or Cough GI GI: Negative nausea, vomiting or heartburn Neuro Neuro: Negative for dizziness, lightheadedness, near syncope, headache(s) or weakness Endo Endo: Negative for fatigue Cardiology Exam Const Appearance: cooperative, healthy appearing, no acute distress, well developed and well groomed Nutritional Appearance: average body habitus and well nourished Orientation: alert, awake and oriented x3 Head Head: normal to inspection, normocephalic and atraumatic Ears: hearing grossly normal bilaterally and external ears normal Nose: external nose normal, nares normal, nasal mucous membranes and turbinat (more content not included)... Normal [facility] CBC W/Diff, Automatedon -08 13-2023 Absolute Lymph 1.68 X10 3/uL Normal 0.83-4.51 [facility] Comment on above: Performed By: #### L 501.9910, L100.0100 #### [facility] [address] [place], [address] Absolute Neut 6.0 X10 3/uL Normal 2.0-7.7 [facility] Comment on above: Performed By: #### L [id number], L100.0100 #### [facility] [address] [place], [address] Basophils/100 WBC (Bld) 0.9 % Normal 0-1 [facility] Comment on above: Performed By: #### L [id number], L100.0100 #### [facility] [address] [place], [address] Eosinophils/100 WBC (Bld) 3.7 % Normal 0-5 [facility] Comment on above: Performed By: #### L [id number], L100.0100 #### [facility] [address] [place], [address] Erythrocyte distribution width (RBC) [Ratio] 13.5 % Normal 11.6-14.6 [facility] Comment on above: Performed By: #### L [id number], L100.0100 #### [facility] [address] [place], [address] Hematocrit (Bld) [Volume fraction] 41.2 % Normal 40-54 [facility] Comment on above: Performed By: #### L [id number], L100.0100 #### [facility] [address] [place], [address] Hemoglobin (Bld) [Mass/Vol] 13.3 g/dL Normal 13.0-16.5 [facility] Comment on above: Performed By: #### L [id number], L100.0100 #### [facility] [address] [place], [address] IG% 0.300 Normal 0.0-0.9 [facility] Comment on above: Result Comment: IG% - Immature Granulocytes (promyelocytes, myelocytes and metamyelocytes) > 1% indicates that a LEFT SHIFT is Present. Performed By: #### L [id number], L100.0100 #### [facility] [address] [place], [address] Lymphocytes/100 WBC (Bld) 19.1 % Normal 19-41 [facility] Comment on above: Performed By: #### L [id number], L100.0100 #### [facility] [address] [place], [address] MCH (RBC) [Entitic mass] 29.2 pg Normal 27.0-32.0 [facility] Comment on above: Performed By: #### L [id number], L100.0100 #### [facility] [address] [place], [address] MCHC (RBC) [Mass/Vol] 32.3 g/dL Normal 32-36 [facility] Comment on above: Performed By: #### L [id number], L100.0100 #### [facility] [address] [place], [address] MCV (RBC) [Entitic vol] 90.5 fL Normal 80-94 [facility] Comment on above: Performed By: #### L [id number], L100.0100 #### [facility] [address] [place], [address] Monocytes/100 WBC (Bld) 7.8 % Normal 0-10 [facility] Comment on above: Performed By: #### L [id number], L100.0100 #### [facility] [address] [place], [address] Neutrophils/100 WBC (Bld) 68.2 % Normal 47-70 [facility] Comment on above: Performed By: #### L [id number], L100.0100 #### [facility] [address] [place], [address] Nucleated RBC (Bld) [#/Vol] 0 10*3/uL Normal 0-5 [facility] Comment on above: Performed By: #### L [id number], L100.0100 #### [facility] [address] [place], [address] Platelet mean volume (Bld) [Entitic vol] 10.3 fL Normal 6.2-12.0 [facility] Comment on above: Performed By: #### L [id number], L100.0100 #### [facility] [address] [place], [address] Platelets (Bld) [#/Vol] 298 10*3/uL Normal 150-450 [facility] Comment on above: Performed By: #### L [id number], L100.0100 #### [facility] [address] [place], [address] RBC (Bld) [#/Vol] 4.55 10*6/uL Low 4.6-6.2 [facility] Comment on above: Performed By: #### L [id number], L100.0100 #### [facility] [address] [place], [address] RDW SD 44.9 fl High 35.1-43.9 [facility] Comment on above: Performed By: #### L [id number], L100.0100 #### [facility] [address] [place], [address] WBC (Bld) [#/Vol] 8.8 10*3/uL Normal 4.4-11.0 [facility] Comment on above: Performed By: #### L [id number], L100.0100 #### [facility] [address] [place], [address] PSA,Total - Annual Screenon 01-22-2024 PSA,TOT SCREEN 0.83 ng/mL Normal 0.00-4.00 [facility] Comment on above: Result Comment: This test was performed using the TPSA assay method for the [employer] chemistry system. Values obtained with different assay methods cannot be used interchangably. When changing PSA assays in the course of monitoring a patient, additional sequential testing should be carried out to confirm baseline values. Performed By: #### L [id number], L100.0100 #### [facility] [address] [place], [address] Basophil percentageOrdered B y: [place] Margi on 11-18-2023 Bilirubin [Mass/Vol] 0.50 mg/dL 0.20-1.00 [facility] Comment on above: For patients on eltr ombopag therapy, use of Dimension [place] TBIL is not recommended. Chloride [Moles/Vol] 108 mmol/L 98-107 [facility] Cholesterol [Mass/Vol] 124 mg/dL <200 [facility] Comment on above: <200 mg/dL Desirable 200-240 mg/dL Borderline >240 mg/dL High Risk Glucose [Mass/Vol] 104 mg/dL 74-106 [facility] Comment on above: Fasting Glucose resu lt from 100 to 125 mg/dL suggests IMPAIRED HOMEOSTASIS per A.D.A. criteria. Potassium [Moles/Vol] 3.7 mmol/L 3.5-5.1 [facility] Comment on above: Slight Hemolysis, Re sult may be falsely increased. Protein [Mass/Vol] 7.2 g/dL 6.4-8.2 [facility] Sodium [Moles/Vol] 140 mmol/L 136-145 [facility] Triglyceride [Mass/Vol] 160 mg/dL <199 [facility] Comment on above: The drugs N-Acetylcy steine and Metamizole may falsely depress this assay.Serum Triglycerides Reference Interval Normal <150 mg/dL Borderline high 150 - 199 mg/dL High 200 - 499 mg/dL Very High > or = 500 mg/dL Direct bilirubinOrdered By: Golden Kiser on 11-18-2023 Bilirubin.direct [Mass/Vol] 0.11 mg/dL 0.00-0.30 [facility] - Chemistry and C hemistry - challengeOrdered By: Golden Kiser on 11-18-2023 ALP [Catalytic activity/Vol] 60 U/L 45-117 [facility] ALT [Catalytic activity/Vol] 25 U/L 16-61 [facility] Cholesterol in HDL [Mass/Vol] 39 mg/dL >40 [facility] Comment on above: The drugs N-Acetylcy steine and Metamizole may falsely depress this assay. Reference Range HDL <40 mg/dL Low HDL Cholesterol HDL >or= 60 mg/dL High HDL Cholesterol Cholesterol in LDL [Mass/Vol] 53 mg/dL 0-130 [facility] CO2 [Moles/Vol] 25.0 mmol/L 21.0-32.0 [facility] Globulin (S) [Mass/Vol] 3.8 g/dL 2.2-4.2 [facility] Urea nitrogen/Creatinine [Mass ratio] 16.7 mg/mg 10-20 [facility] No Panel InformationOrdered By: Golden Kiser on 11-18-2023 Estimated GFR (MDRD) Amer 92 mL/min >60 [facility] Comment on above: GFR Calc Estimated GFR (MDRD) Non-Af Amer 76 mL/min >60 [facility] Comment on above: Non- GFR Calc VLDL Cholesterol 32 mg/dL 5-40 [facility] Serum or plasma calcium felipe urement (mass/volume)Ordered By: Golden Kiser on 11-18-2023 Calcium [Mass/Vol] 8.8 mg/dL 8.5-10.1 [facility] Serum or plasma creatinine m easurement (mass/volume)Ordered By: Golden Margi on 11-18-2023 Creatinine [Mass/Vol] 1.02 mg/dL 0.70-1.30 [facility] Comment on above: The validity of the calculated GFR & GFRAA in patients over 70 years has not been determined. Clinical correlation is essential. Serum or plasma thyroid stim ulating hormone (TSH) measurement (units/volume)Ordered By: Golden Margi on 11-18-2023 TSH Qn 1.22 uIU/mL 0.358-3.74 [facility] Serum or plasma urea nitroge n measurement (mass/volume)Ordered By: Golden Margi on 11-18-2023 Urea nitrogen [Mass/Vol] 17 mg/dL 7-18 [facility] Thin prep Papanicolaou smear with manual screeningOrdered By: [place] Margi on 11-18-2023 Thin prep Papanicolaou smear with manual screening 3.4 g/dL 3.2-5.0 [facility] Thin prep Papanicolaou smear with manual screening 23 U/L 15-37 [facility] Comment on above: Slight Hemolysis, Re sult may be falsely increased. Thin prep Papanicolaou smear with manual screening 7 5-15 [facility] [facility] Bas[facility] percentageon 2021 Bilirubin [Mass/Vol] 0.70 mg/dL 0.20-1.00 [facility] Work Phone: Comment on above: For patients on eltr ombopag therapy, use of Dimension [place] TBIL is not recommended. Cholesterol [Mass/Vol] 154 mg/dL <200 [facility] Work Phone: Comment on above: <200 mg/dL Desirable 200-240 mg/dL Borderline >240 mg/dL High Risk Protein [Mass/Vol] 7.9 g/dL 6.4-8.2 [facility] Work Phone: Triglyceride [Mass/Vol] 163 mg/dL <199 [facility] Work Phone: Comment on above: The drugs N-Acetylcy steine and Metamizole may falsely depress this assay.Serum Triglycerides Reference Interval Normal <150 mg/dL Borderline high 150 - 199 mg/dL High 200 - 499 mg/dL Very High > or = 500 mg/dL Direct bilirubinon 2 Bilirubin.direct [Mass/Vol] 0.21 mg/dL 0.00-0.30 [facility] Work Phone: Laboratory - Chemistry and C hemistry - challengeon 02-14-2022 ALP [Catalytic activity/Vol] 65 U/L 45-117 [facility] Work Phone: ALT [Catalytic activity/Vol] 37 U/L 16-61 [facility] Work Phone: Free T4 [Mass/Vol] 1.54 ng/dL 0.76-1.46 [facility] Work Phone: Globulin (S) [Mass/Vol] 3.9 g/dL 2.2-4.2 [facility] Work Phone: No Panel Informationon 02-14 Thyroid Stimulating Hormone (TSH) < 0.01 uIU/mL 0.358-3.74 [facility] Work Phone: Serum or plasma albumin felipe urement (mass/volume)on 02-14-2022 Albumin [Mass/Vol] 4.0 g/dL 3.2-5.0 [facility] Work Phone: Serum or plasma cholesterol in HDL measurement (mass/volume)on 02-14-2022 Cholesterol in HDL [Mass/Vol] 54 mg/dL >40 [facility] Work Phone: Comment on above: The drugs N-Acetylcy steine and Metamizole may falsely depress this assay. Reference Range HDL <40 mg/dL Low HDL Cholesterol HDL >or= 60 mg/dL High HDL Cholesterol Serum or plasma cholesterol in VLDL measurement (mass/volume)on 02-14-2022 Cholesterol in VLDL [Mass/Vol] 33 mg/dL 5-40 [facility] Work Phone: Serum or plasma low density lipoprotein (LDL) cholesterol measurement (mass/volume)on 02-14-2022 Cholesterol in LDL [Mass/Vol] 67 mg/dL 0-130 [facility] Work Phone: Thin prep Papanicolaou smear with manual screeningon 02-14-2022 Thin prep Papanicolaou smear with manual screening 26 U/L 15-37 [facility] Work Phone: CNOVon 11-14-2017 CNOV Office Visit (UCWSTR) JOVANNY HILLS ([id number]) 1950 MDate Time Provider Department11/14/17 4:15 PM CHIQUIS ACOSTA) WSTR During your visit today, we recorded the following information about you: Temperature Pulse Respiration Blood pressure 99.9 degrees 75/minute 26/minute 140/80 Weight 83 kgChiquis Acosta PA-C 11/14/2017 4:48 PM Signed11/14/2017Patie nt presents with:Flu Like SymptomsSUBJECTIVE: This is a 67 year old that is here today for Complaint(s) of coughand chest congestion x 1 week. + pain with coughing across the center of theback. + intermittent SOB. Notes low grade fever and chills. + Nasalcongestion. Normal appetite, but diminished energy. + scratchy throat withcough. He does have afbi, currently on xaralto.No past medical history on file.ALLERGIES Review of patient's allergies indicates no known allergies.MEDICATIO NSNo current outpatient prescriptions on file.No current facility-administer ed medications for this visit.SOCIAL HISTORYSocial History Marital status: Spouse name: Years of education: Number of children:Social History Main Topics Smoking status: Never Smoker Smokeless status: Never UsedREVIEW OF SYSTEMSAll other reviewed and negative other than HPI.OBJECTIVE:BP 140/80 Pulse 75 Temp 37.7 ?C (99.9 ?F) (Left Tympanic) Resp 26 Wt 83kg (183 lb) SpO2 96%APPEARANCE Well appearing, alert, in no acute distress, well-hydrated, wellnourished.EYES PERRLA, conjunctiva and sclera normal.EARS External ears normal, canals clear. TMs normal BILNOSE/SINUS Nares normal. Septum midline. Mucosa normal. No drainage or sinustenderness.THR OAT normal, no erythemaNECK Supple, no adenopathyHEART RRR with normal S1 and S2LUNG coarse breath sounds DANIELLE lower lobes, + expiratory wheezes scattered leftside.ASSESSMENT /PLAN:1. Bronchitis - ICD9: 490, ICD10: [id number] care with fluids and restReviewed red flags and when to seek care sooner.OTC cough/cold meds- BENZONATATE 100 MG CAPSULE- PREDNISONE 20 MG TABLET- DOXYCYCLINE HYCLATE 100 MG TABLETThe patient indicates understanding of these issues and agrees with the plan.Reviewed red flags and when to seek care sooner.RODOLFO Ku-CReferring Provider: SELF [200]Allergies As of Date: 11/14/2017(No Known Allergies)Date Reviewed: 11/14/2017Reviewed by: Aure Jaimes Ma - Fully AssessedReason for Visit: Flu Like Symptoms [267]Primary Visit Diagnosis:Bronchiti s [J40]Order(s):benzo natate (TESSALON PERLE) 100 mg capsuleTake 2 capsules by mouth three times daily as needed.Disp: 30 capsuleRfl: 0 predniSONE (DELTASONE) 20 mg tabletTake 2 tablets by mouth once daily for 5 days.Disp: 10 tabletRfl: 0 doxycycline (VIBRA-TABS) 100 mg tabletTake 1 tablet by mouth twice daily for 10 days.Disp: 20 tabletRfl: 0Prescriptions as of 11/14/2017 Sig: BENZONATATE 100 MG CAPSULE Take 2 capsules by mouth thre* PREDNISONE 20 MG TABLET Take 2 tablets by mouth once * DOXYCYCLINE HYCLATE 100 MG TA* Take 1 tablet by mouth twice *Problem List As Of Date: 11/14/2017(None)Pre scriptions ordered this encounter Disp Refills Start End [...] by mouth twice daily for 10 days. Status:Closed by CHIQUIS ACOSTA PA-C on 11/14/17 Normal [facility] PROGRESSon 11-14-2017 PROGRESS HNO ID: [id number]: Chiquis (Vimal) Harrietervice: (none)Author Type: Physician AssistantType: Progress NotesFiled: 11/14/2017 4:48 PMNote Text:11/14/2017Patien t presents with:Flu Like SymptomsSUBJECTIVE: This is a 67 year old that is here today for Complaint(s) ofcough and chest congestion x 1 week. + pain with coughing across thecenter of the back. + intermittent SOB. Notes low grade fever andchills. + Nasal congestion. Normal appetite, but diminished energy. +scratchy throat with cough. He does have afbi, currently on xaralto.No past medical history on file.ALLERGIES Review of patient's allergies indicates no known allergies.MEDICATIO NSNo current outpatient prescriptions on file.No current facility-administer ed medications for this visit.SOCIAL HISTORYSocial History Marital status: Spouse name: Years of education: Number of children:Social History Main Topics Smoking status: Never Smoker Smokeless status: Never UsedREVIEW OF SYSTEMSAll other reviewed and negative other than HPI.OBJECTIVE:BP 140/80 Pulse 75 Temp 37.7 ?C (99.9 ?F) (Left Tympanic) Resp 26 Wt 83 kg (183 lb) SpO2 96%APPEARANCE Well appearing, alert, in no acute distress, well-hydrated,well nourished.EYES PERRLA, conjunctiva and sclera normal.EARS External ears normal, canals clear. TMs normal BILNOSE/SINUS Nares normal. Septum midline. Mucosa normal. No drainage orsinus tenderness.THROAT normal, no erythemaNECK Supple, no adenopathyHEART RRR with normal S1 and S2LUNG coarse breath sounds DANIELLE lower lobes, + expiratory wheezes scatteredleft side.ASSESSMENT/ELADIO N:1. Bronchitis - ICD9: 490, ICD10: [id number] care with fluids and restReviewed red flags and when to seek care sooner.OTC cough/cold meds- BENZONATATE 100 MG CAPSULE- PREDNISONE 20 MG TABLET- DOXYCYCLINE HYCLATE 100 MG TABLETThe patient indicates understanding of these issues and agrees with theplan.Reviewed red flags and when to seek care sooner.Chiquis Acosta PA-C Normal [facility] Lab Report: Lipid Profileon 07-14-2017 Cholesterol 112 mg/dL Invalid Interpretation Code 200 [facility] Work Phone: [phone] HDL Cholesterol 44 mg/dL Invalid Interpretation Code [facility] Work Phone: [phone] LDL Cholesterol 42 mg/dL Invalid Interpretation Code 0-130 [facility] Work Phone: [phone] Triglyceride 132 mg/dL Invalid Interpretation Code [facility] Work Phone: [phone] very low density lipoproteins 26 mg/dL Invalid Interpretation Code 5-40 [facility] Work Phone: [phone] Lab Report: Liver Profileon 07-14-2017 Alanine aminotransferase (ALT) 31 U/L Invalid Interpretation Code 12-78 [facility] Work Phone: [phone] Albumin 3.6 g/dL Invalid Interpretation Code 3.4-5.0 [facility] Work Phone: [phone] Alkaline phosphatase (ALP) 55 U/L Invalid Interpretation Code 45-117 [facility] Work Phone: [phone] Aspartate aminotransferase (AST) 19 U/L Invalid Interpretation Code 15-37 [facility] Work Phone: [phone] Bilirubin (direct) 0.13 mg/dL Invalid Interpretation Code 0.00-0.30 [facility] Work Phone: [phone] Bilirubin (total) 0.60 mg/dL Invalid Interpretation Code 0.20-1.00 [facility] Work Phone: [phone] Globulin 3.7 g/dL Invalid Interpretation Code 2.2-4.2 [facility] Work Phone: [phone] Protein 7.3 g/dL Invalid Interpretation Code 6.4-8.2 [facility] Work Phone: [phone] Clinical Lists Update: Clini angie Noteon 01-31-2017 Left ventricular Ejection fraction 50 % Invalid Interpretation Code [facility] Work Phone: [phone] Lab Report: Lipid Profileon 01-10-2017 Cholesterol [Mass/Vol] 140 mg/dL Invalid Interpretation Code 200 [facility] Work Phone: [phone] Cholesterol in HDL [Mass/Vol] 44 mg/dL Invalid Interpretation Code [facility] Work Phone: [phone] Cholesterol in LDL [Mass/Vol] 65 mg/dL Invalid Interpretation Code 0-130 [facility] Work Phone: [phone] Lipoprotein.pre-beta [Mass/Vol] 31 mg/dL Invalid Interpretation Code 5-40 [facility] Work Phone: [phone] Triglyceride [Mass/Vol] 154 mg/dL Invalid Interpretation Code [facility] Work Phone: [phone] Lab Report: Liver Profileon 01-10-2017 Albumin [Mass/Vol] 3.6 g/dL Invalid Interpretation Code 3.4-5.0 [facility] Work Phone: [phone] Alkaline phosphatase (ALP) 63 U/L Invalid Interpretation Code 45-117 [facility] Work Phone: [phone] ALP (Bld) [Catalytic activity/Vol] 63 U/L 45-117 [facility] Work Phone: [phone] ALT [Catalytic activity/Vol] 33 U/L Invalid Interpretation Code 12-78 [facility] Work Phone: [phone] AST [Catalytic activity/Vol] 22 U/L Invalid Interpretation Code 15-37 [facility] Work Phone: [phone] Bilirubin [Mass/Vol] 0.50 mg/dL Invalid Interpretation Code 0.20-1.00 [facility] Work Phone: [phone] Bilirubin.direct [Mass/Vol] 0.08 mg/dL Invalid Interpretation Code 0.00-0.30 [facility] Work Phone: [phone] Globulin 3.5 g/dL Invalid Interpretation Code 2.3-3.5 [facility] Work Phone: [phone] Globulin (S) [Mass/Vol] 3.5 g/dL 2.3-3.5 [facility] Work Phone: [phone] Protein [Mass/Vol] 7.1 g/dL Invalid Interpretation Code 6.4-8.2 [facility] Work Phone: [phone] Lab Report: T4 Total, Thyrox inon 01-10-2017 T4 [Mass/Vol] 10.3 ug/dL Invalid Interpretation Code 4.5-12.1 [facility] Work Phone: [phone] Lab Report: Thyroid Stim Hor andra (TSH)on 01-10-2017 TSH Qn 0.86 u[iU]/mL Invalid Interpretation Code 0.358-3.74 [facility] Work Phone: [phone] Office Visiton 01-09-2017 Documentation of current medications (procedure) Done Invalid Interpretation Code [facility] Work Phone: [phone] Fall risk assessment Fall risk assessment Invalid Interpretation Code [facility] Work Phone: [phone] Protein mass conc Done [facility] Work Phone: [phone] Lab Report: PSA,Total - Katherine al Screenon 01-26-2016 prostate specific antigen (PSA) screening 0.34 ng/mL Invalid Interpretation Code 0.00-4.00 [facility] Work Phone: [phone] Protein mass conc 0.34 ng/mL 0.00-4.00 [facility] Work Phone: [phone] PSA,TOT SCREEN 0.34 ng/mL Invalid Interpretation Code 0.00-4.00 [facility] Work Phone: [phone] Office Visiton 01-25-2016 Tobacco smoking status NHIS Tobacco smoking status NHIS Invalid Interpretation Code [facility] Work Phone: [phone] Tobacco smoking status NHIS Never smoker [facility] Work Phone: [phone] Tobacco use [facility] Never smoker Invalid Interpretation Code [facility] Work Phone: [phone] Office Visit: Establish PCPo n 12-14-2015 Tobacco smoking status NHIS Never Invalid Interpretation Code [facility] Work Phone: [phone] Office Visiton 10-05-2015 Left ventricular Ejection fraction 47 % [facility] Work Phone: [phone] Replaced Document: Midmark E CG Observationson 08-30-2015 EKG QRS axis -40 deg Invalid Interpretation Code [facility] Work Phone: [phone] electrocardiogram interpretation Sinus Rhythm -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 Invalid Interpretation Code [facility] Work Phone: [phone] P Addison 36 deg Invalid Interpretation Code [facility] Work Phone: [phone] P wave axis, electrocardiogram 36 deg Invalid Interpretation Code [facility] Work Phone: [phone] IL Interval 164 ms Invalid Interpretation Code [facility] Work Phone: [phone] IL interval, electrocardiogram 164 ms Invalid Interpretation Code [facility] Work Phone: [phone] Pulse (Heart Rate) 62 /min Invalid Interpretation Code [facility] Work Phone: [phone] QRS axis, electrocardiogram -40 deg Invalid Interpretation Code [facility] Work Phone: [phone] QRS Duration 104 ms Invalid Interpretation Code [facility] Work Phone: [phone] QRS duration, electrocardiogram 104 ms Invalid Interpretation Code [facility] Work Phone: [phone] QT Interval new path ms Invalid Interpretation Code [facility] Work Phone: QT interval, electrocardiogram new path ms Invalid Interpretation Code [facility] Work Phone: [phone] QTc Tanner 451 ms Invalid Interpretation Code [facility] Work Phone: [phone] T Addison 34 deg Invalid Interpretation Code [facility] Work Phone: [phone] T wave axis, electrocardiogram 34 deg Invalid Interpretation Code [facility] Work Phone: [phone] Lab Report: Basic Metabolic Profile (BMP)on 07-12-2015 Anion gap 6 mmol/L Invalid Interpretation Code 5-15 [facility] Work Phone: [phone] Anion gap [Moles/Vol] 6 mmol/L 5-15 [facility] Work Phone: [phone] Calcium [Mass/Vol] 8.8 mg/dL Invalid Interpretation Code 8.5-10.1 [facility] Work Phone: [phone] Chloride [Moles/Vol] 105 mmol/L Invalid Interpretation Code 98-107 [facility] Work Phone: [phone] CO2 31.0 mmol/L Invalid Interpretation Code 21.0-32.0 [facility] Work Phone: [phone] CO2 (BldV) [Partial pressure] 31.0 mmol/L 21.0-32.0 [facility] Work Phone: [phone] Creatinine [Mass/Vol] 1.10 mg/dL Invalid Interpretation Code 0.70-1.30 [facility] Work Phone: [phone] eGFR (non-black) 87 mL/min/{1.73_m2} Invalid Interpretation Code >60 [facility] Work Phone: [phone] EST GFR - AA 87 mL/min >60 [facility] Work Phone: [phone] GFR/1.73 sq M predicted among non-blacks MDRD (S/P/Bld) [Vol rate/Area] 72 mL/min/{1.73_m2} Invalid Interpretation Code >60 [facility] Work Phone: [phone] Glucose 93 mg/dL Invalid Interpretation Code 70-110 [facility] Work Phone: [phone] Glucose [Mass/Vol] 93 mg/dL Invalid Interpretation Code 70-110 [facility] Work Phone: [phone] Potassium [Moles/Vol] 3.6 mmol/L Invalid Interpretation Code 3.5-5.1 [facility] Work Phone: [phone] Sodium [Moles/Vol] 142 mmol/L Invalid Interpretation Code 136-145 [facility] Work Phone: [phone] Urea nitrogen [Mass/Vol] 15 mg/dL Invalid Interpretation Code 7-18 [facility] Work Phone: [phone] Urea nitrogen/Creatinine [Mass ratio] 13.6 RATIO Invalid Interpretation Code 10-20 [facility] Work Phone: [phone] Lab Report: Basic Metabolic Profile (BMP)on 05-17-2015 Creatinine 64.46 mL/min Invalid Interpretation Code [facility] Work Phone: [phone] Lab Report: CBC-Complete Blo od Cnt No Diffon 04-18-2015 Erythrocyte distribution width (RBC) [Ratio] 40.5 fL 35.1-43.9 [facility] Work Phone: [phone] Erythrocyte distribution width (RBC) [Ratio] 12.7 % 11.6-14.6 [facility] Work Phone: [phone] Erythrocytes (RBC) 4.91 10*6/uL Invalid Interpretation Code 4.6-6.2 [facility] Work Phone: [phone] Hematocrit (Bld) [Volume fraction] 42.7 % 40-54 [facility] Work Phone: [phone] Hematocrit (HCT) 42.7 % Invalid Interpretation Code 40-54 [facility] Work Phone: [phone] Hemoglobin (Bld) [Mass/Vol] 14.4 g/dL Invalid Interpretation Code 13.0-16.5 [facility] Work Phone: [phone] MCH 29.3 pg Invalid Interpretation Code 27.0-32.0 [facility] Work Phone: [phone] MCH (RBC) [Entitic mass] 29.3 pg 27.0-32.0 [facility] Work Phone: [phone] MCHC 33.7 G/GL Invalid Interpretation Code 32-36 [facility] Work Phone: [phone] MCHC (RBC) [Mass/Vol] 33.7 G/GL 32-36 [facility] Work Phone: [phone] MCV 87.0 fL Invalid Interpretation Code 80-94 [facility] Work Phone: [phone] MCV (RBC) [Entitic vol] 87.0 fL 80-94 [facility] Work Phone: [phone] Platelet mean volume (Bld) [Entitic vol] 10.0 fL 6.2-12.0 [facility] Work Phone: [phone] Platelets 220 10*3/mm3 Invalid Interpretation Code 150-450 [facility] Work Phone: [phone] Platelets (Bld) [#/Vol] 220 10*3/mm3 150-450 [facility] Work Phone: [phone] PMV by Adele 10.0 fL Invalid Interpretation Code 6.2-12.0 [facility] Work Phone: [phone] RBC (Bld) [#/Vol] 4.91 10*6/uL 4.6-6.2 [facility] Work Phone: [phone] RDW SD 40.5 fL Invalid Interpretation Code 35.1-43.9 [facility] Work Phone: [phone] RDW-CA 12.7 % Invalid Interpretation Code 11.6-14.6 [facility] Work Phone: [phone] red blood cell distribution width, size density 40.5 fL Invalid Interpretation Code 35.1-43.9 [facility] Work Phone: [phone] WBC (Bld) [#/Vol] 8.4 10*3/uL 4.4-11.0 [facility] Work Phone: [phone] WBC (Leukocytes) 8.4 10*3/uL Invalid Interpretation Code 4.4-11.0 [facility] Work Phone: [phone] Office Visiton 02-22-2015 cardiac risk group C Invalid Interpretation Code [facility] Work Phone: [phone] General cardiovascular disease 10Y risk [#] Colton.D'Agostino N/A Invalid Interpretation Code [facility] Work Phone: [phone] Clinical Lists Update: Pre02-16-2015 eGFR (non-black) 87 mL/min/{1.73_m2} Invalid Interpretation Code [facility] Work Phone: [phone] GFR/1.73 sq M predicted among non-blacks MDRD (S/P/Bld) [Vol rate/Area] 72 mL/min/{1.73_m2} Invalid Interpretation Code [facility] Work Phone: [phone] Glomerular Filtration Rate 87 mL/min/1.73m2 [facility] Work Phone: [phone] Magnesium [Mass/Vol] 8.5 mg/dL Invalid Interpretation Code [facility] Work Phone: [phone] Clinical Lists Update: Pre02-14-2015 basophils as percent of blood leukocytes, manual count 0.4 % Invalid Interpretation Code [facility] Work Phone: [phone] eosinophils as percent of blood leukocytes, manual count 2.1 % Invalid Interpretation Code [facility] Work Phone: [phone] Lymphocytes/100 leukocytes 17.5 % Low [facility] Work Phone: [phone] Lymphocytes/100 WBC (Bld) 17.5 % Low [facility] Work Phone: [phone] Monocytes/100 leukocytes 9.1 % Invalid Interpretation Code [facility] Work Phone: [phone] Monocytes/100 WBC (Bld) 9.1 % [facility] Work Phone: [phone] neutrophils, band form as percent of blood leukocytes, manual count 70.6 % High [facility] Work Phone: [phone] Vital Signs Date Time Vital Sign Value Performing Clinician Facility 11-18-2023 11:24-0400 Body height 172.[address] Ravin Aly Work Phone: [facility] 11-18-2023 11:24-0400 Body mass index (BMI) [Ratio] 26.6 kg/m2 Dr. Ravin Aly Work Phone: [facility] 11-18-2023 11:24-0400 Body weight 79.[address] Ravin Aly Work Phone: [facility] 11-18-2023 11:24-0400 Diastolic blood pressure 81 mm[Hg] Dr. Ravin Aly Work Phone: [facility] 11-18-2023 11:24-0400 Heart rate 62 /min Dr. Ravin Aly Work Phone: [facility] 11-18-2023 11:24-0400 Respiratory rate 16 /min Dr. Ravin Aly Work Phone: [facility] 11-18-2023 11:24-0400 Systolic blood pressure 128 mm[Hg] Dr. Ravin Aly Work Phone: [facility] 02-14-2022 15:48-0400 Body height 172.[address] Ravin Aly Work Phone: [facility] Work Phone: 02-14-2022 15:48-0400 Body mass index (BMI) [Ratio] 25 kg/m2 Dr. Ravin Aly Work Phone: [facility] Work Phone: 02-14-2022 15:48-0400 Body weight 74.[address] Ravin Aly Work Phone: [facility] Work Phone: 02-14-2022 15:48-0400 Diastolic blood pressure 61 mm[Hg] Dr. Ravin Aly Work Phone: [facility] Work Phone: 02-14-2022 15:48-0400 Heart rate 73 /min Dr. Ravin Aly Work Phone: [facility] Work Phone: 02-14-2022 15:48-0400 SaO2% (BldA) [Mass fraction] 96 % Dr. Ravin Aly Work Phone: [facility] Work Phone: 02-14-2022 15:48-0400 Systolic blood pressure 108 mm[Hg] Dr. Ravin Aly Work Phone: [facility] Work Phone: 01-09-2017 16:06-0400 BMI (Body Mass Index) 27.82 kg/m2 MD [facility] Work Phone: 01-09-2017 16:06-0400 Body weight 83.01 kg MD [facility] Work Phone: 01-09-2017 16:06-0400 BP Diastolic 60 mm[Hg] MD [facility] Work Phone: 01-09-2017 16:06-0400 BP Systolic 110 mm[Hg] MD [facility] Work Phone: 01-09-2017 16:06-0400 Height 172.72 cm MD [facility] Work Phone: 01-09-2017 16:06-0400 Pulse (Heart Rate) 64 /min MD [facility] Work Phone: 01-09-2017 16:06-0400 Respiratory Rate 20 /min MD [facility] Work Phone: 01-09-2017 16:06-0400 Weight 83.01 kg MD [facility] Work Phone: 01-25-2016 15:44-0400 BSA (Body Surface Area) 1.97 m2 MD [facility] Work Phone: 12-14-2015 16:10-0400 Body Temperature 97.8 [degF] MD [facility] Work Phone: 12-14-2015 16:10-0400 Pulse Oximetry 97 % Golden Kiser MD [facility] Work Phone: 08-30-2015 16:46-0500 Heart rate 62 /min Golden Kiser MD [facility] Work Phone: 05-17-2015 07:37-0400 Body surface area Derived from formula 64.46 mL/min Golden Kiser MD [facility] Work Phone: Encounters Encounter Date Encounter Type Care Provider Facility Start: 12-30-2024 End: 12-30-2024 ambulatory Ravin Sheeba Facility[place] Start: 01-22-2024 End: 01-22-2024 ambulatory Ravin Aly Facility:[facility] Start: 12-16-2023 Non-patient / Non-visit Dr. Lazaro Aly Work Phone: [facility] Start: 12-16-2023 End: 12-16-[address] Ravin Aly Work Phone: [facility] Work Phone: Start: 12-16-2023 End: 12-16-[address] [facility]: Start: 11-18-2023 End: 11-18-[address] Ravin Aly Work Phone: [facility] Work Phone: Start: 11-18-2023 End: 11-18-[address] Ravin Aly Work Phone: [facility] Work Phone: Start: 02-14-2022 End: 02-14-[address] Ravin Aly Work Phone: [facility] Start: 11-14-2017 End: 04-09-2018 Ambulatory [facility] Procedures Date Procedure Procedure Detail Performing Clinician Start: 02-14-2022 Plain chest X-ray Dr. Ravin Aly Work Phone: Start: 07-14-2017 End: 07-14-2017 *Hepatic Function Panel [facility] Start: 07-14-2017 End: 07-14-2017 Lipid 1996 panel - Serum or Plasma Golden Kiser MD Start: 01-09-2017 End: 01-09-2017 Documentation of current medications Golden Kiser MD Start: 01-09-2017 End: 01-13-2017 *Hepatic Function Panel [facility] Start: 01-09-2017 End: 01-31-2017 Echocardiography Golden Kiser MD Start: 01-09-2017 End: 01-13-2017 Lipid 1996 panel - Serum or Plasma Golden Kiser MD Start: 01-09-2017 End: 01-13-2017 Thyrotropin [Units/volume] in Serum or Plasma Golden Kiser MD Start: 01-09-2017 End: 01-13-2017 Thyroxine (T4) [Mass/volume] in Serum or Plasma Golden Kiser MD Start: 01-09-2017 End: 01-13-2017 *Hepatic Function Panel [facility] Start: 01-09-2017 End: 01-31-2017 Echocardiography Golden Kiser MD Start: 01-09-2017 End: 01-13-2017 Lipid panel [AGGREGATE] [facility] Start: 01-09-2017 End: 01-13-2017 Thyroid stimulating hormone (TSH) Golden Kiser MD Start: 01-09-2017 End: 01-13-2017 Thyroxine (T4) Golden Kiser MD Start: 01-25-2016 End: 01-26-2016 *Hepatic Function Panel [facility] Start: 01-25-2016 End: 01-25-2016 TY Kiser MD Start: 01-25-2016 End: 01-31-2017 Echocardiography Golden Kiser MD Start: 01-25-2016 End: 01-25-2016 Follow Up Appt 6 months [facility] Start: 01-25-2016 End: 01-26-2016 Lipid 1996 panel - Serum or Plasma Golden Kiser MD Start: 01-25-2016 End: 01-26-2016 Thyrotropin [Units/volume] in Serum or Plasma Golden Kisre MD Start: 01-25-2016 End: 01-26-2016 *Hepatic Function Panel [facility] Start: 01-25-2016 End: 01-25-2016 TY Kiser MD Start: 01-25-2016 End: 01-31-2017 Echocardiography Golden Kiser MD Start: 01-25-2016 End: 01-25-2016 Follow Up Appt 6 months [facility] Start: 01-25-2016 End: 01-26-2016 Lipid panel [AGGREGATE] [facility] Start: 01-25-2016 End: 01-26-2016 Thyroid stimulating hormone (TSH) Golden Kiser MD Start: 12-14-2015 End: 01-26-2016 Prostate specific Ag [Mass/volume] in Serum or Plasma Ravin Aly DO Work Phone: Start: 12-14-2015 End: 01-26-2016 PSA Ravin Aly DO Work Phone: Start: 12-14-2015 Screening for malignant neoplasm of prostate Screening for prostate cancer Golden Kiser MD Start: 08-30-2015 End: 01-25-2016 TY Kiser MD Start: 08-30-2015 End: 01-25-2016 Echocardiography Golden Kiser MD Start: 08-30-2015 End: 01-25-2016 Follow Up Appt 3 months [facility] Start: 08-30-2015 End: 01-25-2016 MRI (various) Golden Kiser MD Start: 08-30-2015 End: 01-25-2016 TY Kiser MD Start: 08-30-2015 End: 01-25-2016 Echocardiography Golden Kiser MD Start: 08-30-2015 End: 01-25-2016 Follow Up Appt 3 months [facility] Start: 08-30-2015 End: 01-25-2016 MRI (various) Golden Kiser MD Start: 07-12-2015 End: 07-13-2015 *BMP Tiffany Calle PA-C Work Phone: Start: 07-12-2015 End: 07-12-2015 GRIDDLE COOK Tiffany Calle PA-C Work Phone: Start: 07-12-2015 End: 01-25-2016 Echocardiography Tiffany Calle PA-C Work Phone: Start: 07-12-2015 End: 07-12-2015 Follow Up Appt 3 months Tiffany glass PA-C Work Phone: Start: 07-12-2015 End: 07-13-2015 *BMP Tiffany Calle PA-C Work Phone: Start: 07-12-2015 End: 07-12-2015 GRIDDLE COOK Tiffany Calle PA-C Work Phone: Start: 07-12-2015 End: 01-25-2016 Echocardiography Tiffany Calle PA-C Work Phone: Start: 07-12-2015 End: 07-12-2015 Follow Up Appt 3 months Tiffany glass PA-C Work Phone: Start: 04-24-2015 End: 06-05-2015 *SEGUNDO Kiser MD Start: 04-24-2015 End: 06-28-2015 Cardioversion Golden Kiser MD Start: 04-24-2015 End: 04-24-2015 Transesophageal echocardiogram (FABI) Golden Kiser MD Start: 04-24-2015 End: 06-05-2015 *SEGUNDO Kiser MD Start: 04-24-2015 End: 06-28-2015 Cardioversion Golden Kiser MD Start: 04-24-2015 End: 04-24-2015 Transesophageal echocardiogram (FABI) Golden Kiser MD Start: 04-05-2015 End: 04-18-2015 *SEGUNDO Kiser MD Start: 04-05-2015 End: 04-18-2015 CBC W Auto Differential panel - Blood Golden Kiser MD Start: 04-05-2015 End: 04-06-2015 Documentation of current medications Golden Kiser MD Start: 04-05-2015 End: 04-05-2015 Ecg routine ecg w/least 12 lds w/i&r Golden Kiser MD Start: 04-05-2015 End: 06-28-2015 MMM Golden Kiser MD Start: 04-05-2015 End: 04-18-2015 *BMP Golden Kiser MD Start: 04-05-2015 End: 04-18-2015 CBC W Auto Differential panel - Blood Golden Kiser MD Start: 04-05-2015 End: 04-06-2015 Documentation of current medications Golden Kiser MD Start: 04-05-2015 End: 04-05-2015 Electrocardiogram, complete Golden Ignacio i, MD Start: 04-05-2015 End: 06-28-2015 MMM Golden Kiser MD Start: 02-22-2015 End: 02-22-2015 GRIDDLE COOK Golden Kiser MD Start: 02-22-2015 End: 02-23-2015 Documentation of current medications Golden Kiser MD Start: 02-22-2015 End: 02-22-2015 Follow Up Appt 6 weeks Golden Kiser MD Start: 02-22-2015 End: 02-22-2015 GRIDDLE COOK Golden Kiser MD Start: 02-22-2015 End: 02-23-2015 Documentation of current medications Golden Kiser MD Start: 02-22-2015 End: 02-22-2015 Follow Up Appt 6 weeks Golden Kiser MD Plan of Treatment Date Care Activity Detail Author Start: 07-18-2017 End: 07-18-2017 Appointment Appointment [facility] Work Phone: Start: 07-15-2017 End: 07-14-2017 *Hepatic Function Panel *Hepatic Function Panel [facility] Work Phone: Start: 07-15-2017 End: 07-14-2017 Lipid panel [AGGREGATE] *Lipid Profile CC PCP [facility] Work Phone: Start: 07-15-2017 End: 01-21-2017 *Hepatic Function Panel *Hepatic Function Panel [facility] Work Phone: Start: 07-15-2017 End: 01-21-2017 Lipid panel [AGGREGATE] *Lipid Profile CC PCP [facility] Work Phone: Start: 01-09-2017 End: 01-13-2017 *Hepatic Function Panel *Hepatic Function Panel [facility] Work Phone: Start: 01-09-2017 End: 01-09-2017 GRIDDLE COOK [facility] Work Phone: Start: 01-09-2017 End: 01-09-2017 Echocardiography Echocardiogram (complete) [facility] Work Phone: Start: 01-09-2017 End: 01-09-2017 Follow Up Appt 6 months Follow Up Appt 6 months [facility] Work Phone: Start: 01-09-2017 End: 01-13-2017 Lipid panel [AGGREGATE] *Lipid Profile CC PCP [facility] Work Phone: Start: 01-09-2017 End: 01-13-2017 Thyroid stimulating hormone (TSH) *TSH [facility] Work Phone: Start: 01-09-2017 End: 01-13-2017 Thyroxine (T4) *T4 (Total) [facility] Work Phone: Start: 01-09-2017 End: 01-13-2017 *Hepatic Function Panel *Hepatic Function Panel [facility] Work Phone: Start: 01-09-2017 End: 01-09-2017 GRIDDLE COOK [facility] Work Phone: Start: 01-09-2017 End: 01-09-2017 Echocardiography Echocardiogram (complete) [facility] Work Phone: Start: 01-09-2017 End: 01-09-2017 Follow Up Appt 6 months Follow Up Appt 6 months [facility] Work Phone: Start: 01-09-2017 End: 01-13-2017 Lipid panel [AGGREGATE] *Lipid Profile CC PCP [facility] Work Phone: Start: 01-09-2017 End: 01-13-2017 Thyroid stimulating hormone (TSH) *TSH [facility] Work Phone: Start: 01-09-2017 End: 01-13-2017 Thyroxine (T4) *T4 (Total) [facility] Work Phone: Start: 01-25-2016 End: 01-26-2016 *Hepatic Function Panel *Hepatic Function Panel [facility] Work Phone: Start: 01-25-2016 End: 01-25-2016 GRIDDLE COOK GR[facility] Work Phone: Start: 01-25-2016 End: 01-25-2016 Echocardiography Echocardiogram (complete) [facility] Work Phone: Start: 01-25-2016 End: 01-25-2016 Follow Up Appt 6 months Follow Up Appt 6 months [facility] Work Phone: Start: 01-25-2016 End: 01-26-2016 Lipid panel [AGGREGATE] *Lipid Profile CC PCP [facility] Work Phone: Start: 01-25-2016 End: 01-26-2016 Thyroid stimulating hormone (TSH) *TSH [facility] Work Phone: Start: 01-25-2016 End: 01-26-2016 *Hepatic Function Panel *Hepatic Function Panel [facility] Work Phone: Start: 01-25-2016 End: 01-25-2016 GRIDDLE COOK GR[facility]LE [facility] Work Phone: Start: 01-25-2016 End: 01-25-2016 Echocardiography Echocardiogram (complete) [facility] Work Phone: Start: 01-25-2016 End: 01-25-2016 Follow Up Appt 6 months Follow Up Appt 6 months [facility] Work Phone: Start: 01-25-2016 End: 01-26-2016 Lipid panel [AGGREGATE] *Lipid Profile CC PCP [facility] Work Phone: Start: 01-25-2016 End: 01-26-2016 Thyroid stimulating hormone (TSH) *TSH [facility] Work Phone: Start: 12-14-2015 End: 01-26-2016 PSA *PSA (Prostate Specific Antigen) [facility] Work Phone: Start: 12-14-2015 End: 01-26-2016 PSA *PSA (Prostate Specific Antigen) [facility] Work Phone: Start: 08-30-2015 End: 01-25-2016 GRIDDLE COOK GRIDDLE COOK [facility] Work Phone: Start: 08-30-2015 End: 01-25-2016 Echocardiography Echocardiogram (complete) [facility] Work Phone: Start: 08-30-2015 End: 01-25-2016 Follow Up Appt 3 months Follow Up Appt 3 months [facility] Work Phone: Start: 08-30-2015 End: 01-25-2016 MRI (various) MRI (various) [facility] Work Phone: Start: 08-30-2015 End: 01-25-2016 GRIDDLE COOK [facility] Work Phone: Start: 08-30-2015 End: 01-25-2016 Echocardiography Echocardiogram (complete) [facility] Work Phone: Start: 08-30-2015 End: 01-25-2016 Follow Up Appt 3 months Follow Up Appt 3 months [facility] Work Phone: Start: 08-30-2015 End: 01-25-2016 MRI (various) MRI (various) [facility] Work Phone: Start: 07-12-2015 End: 07-13-2015 *BMP *BMP [facility] Work Phone: Start: 07-12-2015 End: 07-12-2015 GRIDDLE COOK GR[facility]LE [facility] Work Phone: Start: 07-12-2015 End: 07-13-2015 Echocardiography Echocardiogram (limited) [facility] Work Phone: Start: 07-12-2015 End: 07-12-2015 Follow Up Appt 3 months Follow Up Appt 3 months [facility] Work Phone: Start: 07-12-2015 End: 07-13-2015 *BMP *BMP [facility] Work Phone: Start: 07-12-2015 End: 07-12-2015 GRIDDLE COOK [facility] Work Phone: Start: 07-12-2015 End: 07-13-2015 Echocardiography Echocardiogram (limited) [facility] Work Phone: Start: 07-12-2015 End: 07-12-2015 Follow Up Appt 3 months Follow Up Appt 3 months [facility] Work Phone: Start: 04-24-2015 End: 05-17-2015 *BMP *BMP [facility] Work Phone: Start: 04-24-2015 End: 04-24-2015 Cardioversion Cardioversion [facility] Work Phone: Start: 04-24-2015 End: 04-06-2015 Transesophageal echocardiogram (FABI) Transesophageal echocardiogram (FABI) [facility] Work Phone: Start: 04-24-2015 End: 05-17-2015 *BMP *BMP [facility] Work Phone: Start: 04-24-2015 End: 04-24-2015 Cardioversion Cardioversion [facility] Work Phone: Start: 04-24-2015 End: 04-06-2015 Transesophageal echocardiogram (FABI) Transesophageal echocardiogram (FABI) [facility] Work Phone: Start: 04-05-2015 End: 04-18-2015 *BMP *BMP [facility] Work Phone: Start: 04-05-2015 End: 04-18-2015 CBC W Auto Differential panel - Blood *CBC without Diff [facility] Work Phone: Start: 04-05-2015 End: 04-05-2015 Ecg routine ecg w/least 12 lds w/i&r EKG (In office) [facility] Work Phone: Start: 04-05-2015 End: 06-28-2015 MMM MMM [facility] Work Phone: Start: 04-05-2015 End: 04-18-2015 *BMP *BMP [facility] Work Phone: Start: 04-05-2015 End: 04-18-2015 CBC W Auto Differential panel - Blood *CBC without Diff [facility] Work Phone: Start: 04-05-2015 End: 04-05-2015 Electrocardiogram, complete EKG (In office) [facility] Work Phone: Start: 04-05-2015 End: 06-28-2015 MMM MMM [facility] Work Phone: Start: 02-22-2015 End: 02-22-2015 GRIDDLE COOK [facility]LE [facility] Work Phone: Start: 02-22-2015 End: 02-22-2015 Follow Up Appt 6 weeks Follow Up Appt 6 weeks [facility] Work Phone: Start: 02-22-2015 End: 02-22-2015 [facility] GR[facility]DLE COOK [facility] Work Phone: Start: 02-22-2015 End: 02-22-2015 Follow Up Appt 6 weeks Follow Up Appt 6 weeks [facility] Work Phone: Measurement of respi ratory function [facility] Work Phone: NM Heart Views W str ess and W radionuclide IV [facility] Work Phone: Patient Education HEART%20HEALTHY%20DIET [facility] Work Phone: T4 free measurement [facility] Work Phone: Thyroid stimulating hormone measurement [facility] Work Phone: [facility] Payers Date Payer Category Payer Self-pay [id number] 2023 Unknown [id number] 2015 [id number] Medicare [id number] Unknown [id number] Unknown [facility] [employer] [id number] Unknown [facility] *DO NOT USE* [id number] Unknown [id number] Unknown [id number] Social History Date Type Detail Facility Start: 02-14-2022 End: 11-18-2023 Tobacco smoking status NEIS Unknown if ever smoked [facility] Start: 02-13-2015 Occasional [facility] Start: 02-13-2015 None [facility] Start: 02-13-2015 Spouse/ Signif icant Other [facility] Start: 1950 Sex Assigned At Male [facility] Evaluation note Note Date & Type Note Facility Evaluation note Diagnosis Onset Date retirement current use of amiodarone acute Atherosclerosis of coronary artery of [place] heart without angina pectoris chronic Hyperlipidemia chronic Nonischemic cardiomyopathy c hronic Paroxysmal atrial fibrillation chronic [facility] Work Phone: Evaluation note Note Date & Type Note Facility Evaluation note Diagnosis Onset Date Nonischemic cardiomyopathy c hronic Paroxysmal atrial fibrillation chronic [facility] Work Phone: Summary Purpose Family History No Family History Records Found Relationship Condition Age at Onset Recorded Date/T cally brother Cardiac disease Unknown Advance Directives No Advanced Directives Records Found Advance Directive Response Recorded Date/ Time Advance Directives No February 13 1:45pm Living Will Yes May 16 7:01am Power of Neurodiagnostic Technologist Yes May 16, 015 7:01am Chief Complaint and Reason for Visit Chief Complaint 1 Y FU/MOVED FROM O Reason for Visit retirement current us e of amiodarone Atherosclerosis of coronary artery of [place] heart without angina pectoris Hyperlipidemia Nonischemic cardiomyopathy Paroxysmal atrial fibrillation Chief Complaint 7 m fu INT LABS Reason for Visit Nonischemic cardiomy opathy Paroxysmal atrial fibrillation Chief Complaint 7 m fu INT LABS PAF, DILATED CARDIOMYOPATHY Reason for Visit Nonischemic cardiomy opathy Paroxysmal atrial fibrillation Additional Source Comments (unrecognized sect ion and content) No Status Records FoundNo Status Records Found INFORMATION SOURCE (unrecogn ized section and content) DATE CREATED AUTHOR 01/29/2018 [facility] DATE CREATED AUTHOR AUTHOR'S ORGANIZ ATION 01/06/[address] [facility] Goals (unrecognized section and content) Goals may be documented in a n alternate sectionGoals may be documented in an alternate sectionGoals may be documented in an alternate section Care Teams (unrecognized sec tion and content) Team Status: Active Member Role Status Dates Dr. Ravin Aly DO Family Provider Active Dr. Ravin Aly DO Primary Care Provider Active Team Status: Inactive Member Role Status Dates Dr. Ravin Aly DO Primary Care Provider, Referrin g Provider Active Dr. Golden Kiser MD Attending Provider Active Team Status: Inactive Member Role Status Dates Dr. Ravin Aly DO Primary Care Provider Active Dr. Golden Kiser MD Attending Provider, Referring Pro vider Active Team Status: Active Member Role Status Dates Dr. Ravin Aly DO Primary Care Provider Active Dr. Golden Kiser MD Attending Provider Active FOR RECORDS PERTAINING TO PATIENTS WHO ARE OR HAVE BEEN ENROLLED IN A CHEMICAL DEPENDENCY/SUBSTANCEABUSE PROGRAM, SOME INFORMATION MAY BE OMITTED. This clinical summary was aggregated from multiple sources. Caution should be exercised in using it in the provision of clinical care. This summary normalizes information from multiple sources, and as a consequence, information in this document may materially change the coding, format and clinical context of patient data. In addition, data may be omitted in some cases. CLINICAL DECISIONS SHOULD BE BASED ON THE PRIMARY CLINICAL RECORDS. [facility]. provides no warranty or guarantee of the accuracy or completeness of information in this document.
== END | disposition home or self-care (01) ==
LOC: LAB.FUTURE 13:16 → LAB 13:19
PROVIDERS: Physician Assistant Medical; PCP Family Medicine; Referring Provider Family Medicine; Visit Provider Family Medicine
DX: Z12.5 Encounter for screening for malignant neoplasm of prostate (principal); I25.10 Atherosclerotic heart disease of native coronary artery without angina pectoris; E78.5 Hyperlipidemia, unspecified; R73.03 Prediabetes; Z51.81 Encounter for therapeutic drug level monitoring
CPT/HCPCS: 36415; 80053; 80061; 80076; 83036; 84153; 84443; 85025; G0103